=== PATIENT | male | born 1940 | race Caucasian/White ===

== ENCOUNTER 2023-06-09 06:53 | Outpatient (CLI) | payer OTHER, SELFPAY ==
--- NOTE | 2023-06-09 08:32 | P.ANES_ITS ---
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
== END 2023-06-09 06:54 | disposition home or self-care (01) ==
LOC: OP CLINIC 06:56
PROVIDERS: PCP Family Medicine; Visit Provider Internal Medicine Gastroenterology
DX: Z12.11 Encounter for screening for malignant neoplasm of colon (principal); K57.30 Diverticulosis of large intestine without perforation or abscess without bleeding; Z86.010 Personal history of colon polyps
CPT/HCPCS: 45378; 812; 99100; J2704

== ENCOUNTER 2024-04-27 08:46 | Outpatient (CLI) | payer OTHER, SELFPAY ==
--- OUTSIDE RECORDS SUMMARY | 2024-04-27 08:50 | XMS_ITS | Encounter Summary ---
Author Organization [facility] Address [address] [place] [address]. [place] [address] Care Team Providers Care Inspector Fibrous Wallboard Name Role Phone Glenys Obrien MD Primary Care Provider Glenys Obrien MD Unavailable Savage Estrella [facility] Unavailable Unavailable Coming Katharine De Oliveira MD Unavailable [phone] Todd Shaw MD Unavailable Sukhwinder Collins MD Unavailable Todd Shaw MD Unavailable [phone] Coming Katharine De Oliveira MD Primary Care Provid er Fritz Cantu RN Unavailable Unavailab Keiry Estes PA-C Unavailable [phone] Encounter Details Date Type Department Care Team (Late st Contact Info) Description 07/30/2021 [facility] [address] [phone] [place] [id number] [place] [id number] Social History Tobacco Use Types Packs/Day Years Used Date Smoking Tobacco: Former Smokeless Tobacco: Never Alcohol Use Standard Drinks/Week Comments Yes 0 (1 standard drink = 0.6 oz pur e alcohol) socially Social Connection and Isolat ion Panel [NHANES] Answer Date Recorded Frequency of Communication w ith Friends and Family More than three times a week 05/09/2019 Frequency of Social Gatherin gs with Friends and Family More than three times a week 05/09/2019 Attends Anabaptist Services Never 05/09 Active Member of Clubs or Organizations Yes 05/09/2019 Attends Club or Organization Meetings 1 to 4 dakotah es per year 05/09/2019 Marital Status Living with partner 05/09/2019 AUDIT-C Answer Date Recorded Q1: How often do you have a drink containing alc ohol? 2-3 times a week 05/09/2019 Q2: How many drinks containi ng alcohol do you have on a typical day when you are drinking? 1 or 2 05/09/2019 Q3: How often do you have si x or more drinks on one occasion? Less than monthly 05/09/2019 Overall Financial Resource Strain (CARDIA) Answe r Date Recorded How hard is it for you to pa y for the very basics like food, housing, medical care, and heating? Not very hard 05/09/2019 PHQ-2 Answer Date Recorded PHQ-2 Score 0 05/21/2021 [facility] - Occupational Stress Questionnaire Answer Date Recorded Feeling of Stress Only a little 05/09/2019 Exercise Vital Sign Answer Date Recorde d Days of Exercise per Week 0 days 2018 Minutes of Exercise per Session 0 min 05/09/2019 Hunger Vital Sign Answer Date Recorded Within the past 12 months, y ou worried that your food would run out before you got the money to buy more. Never true 05/09/20 19 Within the past 12 months, t he food you bought just didn't last and you didn't have money to get more. Never true 05/09/2019 PRAPARE - Transportation Answer Date Re corded In the past 12 months, has l ack of transportation kept you from medical appointments or from getting medications? No 01/2019 In the past 12 months, has l ack of transportation kept you from meetings, work, or from getting things needed for daily living? No 05/09/2019 Education Answer Date Recorded What is the highest level of school you have completed or the highest degree you have received? 12th grade 05/09/2019 Sex and Gender Information Value Date Recorded Sex Assigned at Male 05/09/2019 9:19 AM CDT Gender Identity Male 05/09/2019 9:19 AM CDT Sexual Orientation Straight 05/09/2019 9: 19 AM CDT documented as of this encounter Plan of Treatment Not on file documented as of this encounter Visit Diagnoses Not on filedocumented in this encounter Additional Health Concerns Assessment Noted Time PHQ-9 Depression Total Score: 3 05/22/20 21 7:03 AM CDT documented as of this encounter Care Teams Inspector Fibrous Wallboard Relationship Specialty [place] [id number] [address] [place] [address] PCP - General Family Practice 06/03/16 05/26/22 [place] [address] [address] [place] [address] PCP - General 05/27/22 [place] [address] [place] [place] [address] Assigned PCP 04/26/16 02/15/22 Savage Estrella [facility] [address] [address] [place] [address] Pharmacist Pharmacist 12/07/18 [place] [address] [address] [place] [address] Assigned PCP 02/16/22 Todd Shaw MD [id number] [place] [address] Assigned Surgical Provider 02/23/22 Sukhwinder Collins MD [address] [facility] [address] [place] [address] Assigned Surgical Provider 03/30/2204/05/22 Todd Shaw MD [id number] [place] [address] Assigned Surgical Provider 04/06/22 Fritz Cantu, ZIA Personal Advocate & Liaison (PAL) Nurse 08/16/22 12/02/23 Keiry Hernandez, PA-C [address] [place] [address] Physician Harness Inspector Dermatology 06/02/23 documented as of this encounter
--- OUTSIDE RECORDS SUMMARY | 2024-04-27 08:50 | XMS_ITS | Clinical Summary ---
Author Organization [facility] Address [address] [place] [address]. [place] [address] Care Team Providers Care Agency Trainer Name Role Phone Savage Estrella [facility] Unavailable Unavailable Coming Katharine De Oliveira MD Unavailable [phone] Coming Katharine De Oliveira MD Primary Care Provid er Keiry Hernandez PA-C Unavailable [phone] Allergies No known active allergies Medications Medication Sig Dispensed Refills Start Date End Date Status aspirin 81 MG tablet Take 1 tablet (81 mg) by mouth daily 300 tablet 11 05/14/2016 Active Glucosamine-Chondroit -Vit C-Mn (GLUCOSAMINE CHONDR 500 COMPLEX PO) Take 1 tablet by mouth daily Active cholecalciferol (VITAMIN D3) 125 MCG (5000 UT) TABS tablet Take 5,000 Units by mouth daily Active fish oil-omega-3 fatty acids 1000 MG capsule Take 2 g by mouth daily Active nitroGLYcerin (NITROSTAT) 0.4 MG sublingual tabletIndications:His tory of [place] (myocardial infarction) Place 1 tablet (0.4 mg) under the tongue every 5 minutes as needed for chest pain if still having pain after 3 doses (15 min) call 911 25 tablet 3 06/02/2023 Active omeprazole (PRILOSEC) [address] capsuleIndications:Ep igastric pain Take 1 capsule (40 mg) by mouth daily 90 capsule 3 06/02/2023 Active lisinopril (ZESTRIL) 40 MG tabletIndications:Jesús ign essential hypertension Take 1 tablet (40 mg) by mouth daily 90 tablet 3 06/02/2023 Active metoprolol succinate ER (TOPROL XL) 25 MG 24 hr tabletIndications:His [place]ory of [place] (myocardial infarction) Take 1 tablet (25 mg) by mouth daily 90 tablet 3 06/02/2023 Active simvastatin (ZOCOR) 40 MG tabletIndications:Hyp erlipidemia LDL goal <100 Take 1 tablet (40 mg) by mouth at bedtime 90 tablet 3 06/02/2023 Active Active Problems Problem Noted Date Diagnosed Date CKD (chronic kidney disease) 06/02/2023 Syrinx of spinal cord 06/02/2023 Esophageal dysphagia 10/26/2019 Last Assessment & Plan: Lately food, texture not noted, getting stuck. He has to vomit mucus to make the sensation stop Corneal transplant status 05/05/2018 AK (actinic keratosis) 05/28/2017 Acute gouty arthritis 06/03/2016 History of [place] (myocardial infarction) 05/14/2016 Last Assessment & Plan: Remote. On statin beta-chata ASA Presence of stent in left circumflex coronary ar neo 05/14/2016 Last Assessment & Plan: Remote. Stress echo 2 years ago reassuring Benign essential hypertension 05/14/2016 Hyperlipidemia LDL goal <100 05/14/2016 PAC (premature atrial contraction) 05/14/2016 Unilateral inguinal hernia without obstruction o r gangrene 05/14/2016 Cataract 05/14/2016 Arthritis of knee 05/14/2016 Adenomatous colon polyp 05/28/2013 Overview: Overview: Colonoscopy 05/2013 polyps repeat in 5 years Colonoscopy 12/2017 polyps, repeat in 5 years Resolved Problems Problem Noted Date Diagnosed Date Resolved Date Alcohol-induced insomnia 06/30/2020 Other chest pain 10/26/2019 06/30/2020 Last Assessment & Plan: Precordial radiates to the neck responsive to nitroglycerin. Recommend ED evaluation History of small bowel obstruction 05/05/2018 06/30/2020 History of colonic polyps 05/05/2018 NSTEMI (non-ST elevated myoc ardial infarction) 05/14/2016 05/28/2022 Overview: S/p stent Injury of right upper extremity 05/14/2016 01/22/2022 Immunizations Name Administration Dates Next Due COVID-19 12+ (MODERNA) 06/10/2023 COVID-19 Bivalent 12+ (Pfizer) 04/24/2022 COVID-19 MONOVALENT 12+ (Pfizer) 05/08/2021 COVID-19 Monovalent 12+ (Pfizer 2021) 12/12/2021 [id number] Novel Flu 08/14/2009 Influenza (High Dose) Trival ent,PF (Fluzone) 05/12/2019,05/05/2018,05/28/2017,2014,05/24/2014,05/18/2013,05/16/2010 Influenza (IIV3) PF 05/18/2013, 2,07/02/2011,2008,05/23/2008,06/09/2007,06/10/2006,1 08/28/2004 Influenza Vaccine 65+ (Fluzone HD) 06/10,05/28/2022,05/21/2021,2019 Influenza Vaccine >6 months,quad, PF 05/14/2016 Influenza, seasonal, injectable, PF 07/02/2011,1 09/05/2008 Pneumo Conj 13-V (2010&after) 05/14/2016 Pneumococcal 23 valent 03/04/2008 TD,PF 7+ (Tenivac) 11/03/2003 TDAP (Adacel,Boostrix) 05/28/2022 TDAP Vaccine (Adacel) 07/02/2011 Zoster recombinant adjuvante d (SHINGRIX) 10/26/2019,05/12/2019 Zoster vaccine, live 08/12/2011 Family History Medical History Relation Comments Coronary Artery Disease Father Hyperlipidemia Father Other Cancer Father Alzheimer Disease Mother Relation Status Comments Brother 1 Alive Brother 2 Alive Father Mother Social History Tobacco Use Types Packs/Day Years Used Date Smoking Tobacco: Former Cigarettes 0.5 10 0 1958 - 1968 Smokeless Tobacco: Never Tobacco Cessation:Counseling Given: Not Answered Alcohol Use Standard Drinks/Week Comments Yes 0 (1 standard drink = 0.6 oz pur e alcohol) socially Social Connection and Isolat ion Panel [NHANES] Answer Date Recorded In a typical week, how many times do you talk on the phone with family, friends, or neighbors? More than three times a week 05/29/2023 How often do you get togethe r with friends or relatives? More than three times a week 05/29/2023 How often do you attend chur ch or congregation services? Never 05/29/2023 Do you belong to any clubs o r organizations such as gnosticism groups, unions, fraternal or athletic groups, or school groups? No 05/29/2023 How often do you attend meet ings of the clubs or organizations you belong to? Never 05/29/2023 Are you , , di vorced, , never , or living with a partner? 05/29/2023 AUDIT-C Answer Date Recorded Q1: How often do you have a drink containing alcohol? 4 or more times a week 05/29/2023 Q2: How many drinks containi ng alcohol do you have on a typical day when you are drinking? 1 or 2 Q3: How often do you have si x or more drinks on one occasion? Never 05/29/2023 PHQ-2 Answer Date Recorded PHQ-2 Score 1 [facility]02[facility] - Occupational Stress Questionnaire Answer Date Recorded Do you feel stress - tense, restless, nervous, or anxious, or unable to sleep at night because your mind is troubled all the time - these days? Only a little 05/29/2023 Exercise Vital Sign Answer Date Recorde d On average, how many days pe r week do you engage in moderate to strenuous exercise (like a brisk walk)? 0 days 05/29/2023 On average, how many minutes do you engage in exercise at this level? 0 min 05/29/2023 Adolescent Education Answer Date Record ed Getting School Help Needed Not on file 05/16 Food Insecurity Answer Date Recorded Within the past 12 months, d id you worry that your food would run out before you got money to buy more? No 05/29/2023 Within the past 12 months, d id the food you bought just not last and you didn? t have money to get more? No 05/29/2023 Housing Stability Answer Date Recorded Do you have housing? (Kristin orellana is defined as stable permanent housing and does not include staying ouside in a car, in a tent, in an abandoned building, in an overnight snf, or couch-surfing.) Yes 05/29/2023 Are you worried about losing your housing? No 05/29/2023 Financial Resource Strain Answer Date R ecorded Within the past 12 months, h ave you or your family members you live with been unable to get utilities (heat, electricity) when it was really needed? No 05/29/2023 Transportation Needs Answer Date Record ed Within the past 12 months, h as lack of transportation kept you from medical appointments, getting your medicines, non-medical meetings or appointments, work, or from getting things that you need? No 05/29/2023 Interpersonal Safety Answer Date Record ed Do you feel physically and e motionally safe where you currently live? Yes 06/05/2023 Within the past 12 months, h ave you been hit, slapped, kicked or otherwise physically hurt by someone? No 06/05/2023 Within the past 12 months, h ave you been humiliated or emotionally abused in other ways by your partner or ex-partner? No 06/05/2023 Education Answer Date Recorded What is the highest level of school you have completed or the highest degree you have received? 12th grade 05/09/2019 Sex and Gender Information Value Date Recorded Sex Assigned at Male 05/09/2019 9:19 AM CDT Gender Identity Male 05/09/2019 9:19 AM CDT Sexual Orientation Straight 05/09/2019 9: 19 AM CDT Last Filed Vital Signs Vital Sign Reading Time Taken Comments Blood Pressure 121/79 06/05/2023 12:48 PM CDT Pulse 59 06/05/2023 12:48 PM CDT Temperature 36.6 ??C (97.9 ??F) 06/05/2023 12:48 PM C DT Respiratory Rate 10 06/05/2023 12:48 PM CDT Oxygen Saturation 96% 06/05/2023 12:48 PM CDT Inhaled Oxygen Concentration - - Weight 88.1 kg (194 lb 3.2 oz) 06/05/2023 12:48 PM CDT Height 175.3 cm (5' 9) 06/05/2023 12:48 PM CDT Body Mass Index 28.68 06/05/2023 12:48 PM CDT Plan of Treatment Health Maintenance Due Date Last Done Comments CT COLONOGRAPHY 1942 FIT 1942 FLEX SIG 1942 sDNA (Cologuard) 1942 URINALYSIS 1943 RSV VACCINE (1 - 1-dose 75+ series) 2017 PHQ-2 (once per calendar year) 2023 06/02/2023, 05/28/2022, 01/22/2022, Additional history exists COVID-19 Vaccine ( season) 2024 06/10/2023, 04/24/2022, 12/12/2021, Additional history exists INFLUENZA VACCINE (#1) 2024 , 05/28/2022, 05/21/2021, Additional history exists ANNUAL REVIEW OF HM ORDERS 06/02/202406/02, 05/28/2022, 06/30/2020, Additional history exists BMP 06/02/2024 06/02/2023, 02/2023, 11/14/2022, Additional history exists LIPID 06/02/2024 06/02/2023, 05/05, 05/21/2021, Additional history exists MEDICARE ANNUAL WELLNESS VISIT 06/02/2024 06/02/2023, 05/28/2022, 05/21/2021, Additional history exists MICROALBUMIN 06/02/2024 06/02/2023, 05/14/2016 FALL RISK ASSESSMENT 06/05/2024 06/05/2023, 06/02/2023, 05/28/2022, Additional history exists ADVANCE CARE PLANNING 06/02/2028 06/02/2023, 021 COLONOSCOPY 06/09/2028 06/09/2023, 01/2023, 11/02/2017, Additional history exists COLORECTAL CANCER SCREENING 06/09/2028 DTAP/TDAP/TD IMMUNIZATION (3 - Td or Tdap) 05/28/2032 05/28/2022, 07/02/2011, 11/03/2003 Pneumococcal Vaccine: 65+ Years Completed 05/14/2016, 03/04/2008 ZOSTER IMMUNIZATION Completed 10/26/2019, 05/12/2019, 08/12/2011 LUNG CANCER SCREENING Discontinued 02/06/2022 HPV IMMUNIZATION Aged Out No longer e ligible based on patient's age to complete this topic MENINGITIS IMMUNIZATION Aged Out No l onger eligible based on patient's age to complete this topic RSV MONOCLONAL ANTIBODY Aged Out No l onger eligible based on patient's age to complete this topic Procedures Procedure Name Priority Date/Time Associated Diagnosis Comments ALBUMIN RANDOM URINE QUANTITATIVE Routine 06/02/2023 10:34 AM CDT Chronic kidney disease, stage 2 (mild) LIPID REFLEX TO DIRECT LDL PANEL Routine 06/02/2023 10:30 AM CDT Hyperlipidemia LDL goal <100 COMPREHENSIVE METABOLIC PANEL Routine 06/02/2023 10:30 AM CDT Chronic kidney disease, stage 2 (mild) Benign essential hypertension CT CHEST W/O CONTRAST STAT 02/06/2022 12:43 PM CDT Lung mass COLONOSCOPY - HIM SCAN Routine 11/02/2017 from Last 3 Months or Most Recently Relevant to Health Maintenance Results * Albumin Random Urine Quantitative with Creat Ratio (06/02/2023 10:34 AM CDT) Creatinine Urine mg/dL 97.5 mg/dL 06/02/2023 8:44 PM CDT [facility] Comment:The reference ranges have not been established in urine creatinine. The results should be integrated into the clinical context for interpretation. Albumin Urine mg/L <12.0 mg/L 2022 8:44 PM CDT [facility] Comment:The reference ranges have not been established in urine albumin. The results should be integrated into the clinical context for interpretation. Albumin Urine mg/g Cr 06/02/2023 8:44 PM CDT [facility] Comment: Unable to calculate, urine albumin and/or urine creatinine is outside detectable limits. Microalbuminuria is defined as an albumin:creatinine ratio of 17 to 299 for males and 25 to 299 for females. A ratio of albumin:creatinine of 300 or higher is indicative of overt proteinuria. Due to biologic variability, positive results should be confirmed by a second, first-morning random or 24-hour timed urine specimen. If there is discrepancy, a third specimen is recommended. When 2 out of 3 results are in the microalbuminuria range, this is evidence for incipient nephropathy and warrants increased efforts at glucose control, blood pressure control, and institution of therapy with an drwmgnqstur-wutdotwhef-eovuly (RENEE) inhibitor (if the patient can tolerate it). ?? Urine MID-STREAM URINE SPECIMEN / Unknown Non-blood Collection / Unknown 06/02/2023 10:34 AM CDT 06/02/2023 10:34 AM CDT November Rosa De Oliveira MD LAB - URINE ORDERABLES [facility] [place] [facility] [address] [facility] [place] [address] [id number], [facility] [phone] * (ABNORMAL) Lipid panel reflex to direct LDL Fasting (06/02/2023 10:30 AM CDT) Cholesterol 139 <200 mg/dL 06/02/2023 8:44 PM CDT [facility] Triglycerides 177(H) <150 mg/dL 06/02/2023 8:44 PM CDT [facility] Direct Measure HDL 36(L) >=40 mg/dL 06/02/2023 8:44 PM CDT [facility] LDL Cholesterol Calculated 68 <=100 mg/dL 06/02/2023 8:44 PM CDT [facility] Non HDL Cholesterol 103 <130 mg/dL 06/02/2023 8:44 PM CDT [facility] Blood BLOOD SPECIMEN / Unknown Venipuncture / Unknown 06/02/2023 10:30 AM CDT 06/02/2023 10:30 AM CDT Narrative [facility] - 06/02/2023 8:44 PM CDT Cholesterol Desirable: ??<200 mg/dL Triglycerides Normal: ??Less than 150 mg/dL Borderline High: ??150-199 mg/dL High: ??200-499 mg/dL Very High: ??Greater than or equal to 500 mg/dL Direct Measure HDL Female: ??Greater than or equal to 50 mg/dL Male: ??Greater than or equal to 40 mg/dL LDL Cholesterol Desirable: ??<100mg/dL Above Desirable: ??100-129 mg/dL Borderline High: ??130-159 mg/dL High: ??160-189 mg/dL Very High: ??>= 190 mg/dL Non HDL Cholesterol Desirable: ??130 mg/dL Above Desirable: ??130-159 mg/dL Borderline High: ??160-189 mg/dL High: ??190-219 mg/dL Very High: ??Greater than or equal to 220 mg/dL November Rosa De Oliveira MD LAB - BLOOD ORDERABLES [facility] [address] [place], [address] [address], [facility] [phone] * (ABNORMAL) Comprehensive metabolic panel (BMP + Alb, Alk Phos, ALT, AST, Total. Bili, TP) (06/02/2023 10:30 AM CDT) [facility] Sodium 142 135 - 145 mmol/L 06/02/2023 8:44 PM CDT [facility] Comment:Reference intervals for this test were updated on 04/29/2023 to more accurately reflect our healthy population. There may be differences in the flagging of prior results with similar values performed with this method. Interpretation of those prior results can be made in the context of the updated reference intervals. Potassium 4.5 3.4 - 5.3 mmol/L 06/02/2023 8:44 PM CDT [facility] Carbon Dioxide (CO2) 26 22 - 29 mmol/L 06/02/2023 8:44 PM CDT [facility] Anion Gap 9 7 - 15 mmol/L 06/02/2023 8:44 PM CDT [facility] Urea Nitrogen 16.0 8.0 - 23.0 mg/dL 06/02/2023 8:44 PM CDT [facility] Creatinine 1.32(H) 0.67 - 1.17 mg/dL 06/02/2023 8:44 PM CDT [facility] GFR Estimate 55(L) >60 mL/min/1. 73m2 06/02/2023 8:44 PM CDT [facility] Calcium 9.3 8.8 - 10.2 mg/dL 06/02/2023 8:44 PM CDT [facility] Chloride 107 98 - 107 mmol/L 06/02/2023 8:44 PM CDT [facility] Glucose 98 70 - 99 mg/dL 06/02/2023 8:44 PM CDT [facility] Alkaline Phosphatase 60 40 - 129 U/L 06/02/2023 8:44 PM CDT [facility] AST 17 0 - 45 U/L 06/02/2023 8:44 PM CDT [facility] Comment:Reference intervals for this test were updated on 01/13/2023 to more accurately reflect our healthy population. There may be differences in the flagging of prior results with similar values performed with this method. Interpretation of those prior results can be made in the context of the updated reference intervals. ALT 15 0 - 70 U/L 06/02/2023 8:44 PM CDT [facility] Comment:Reference intervals for this test were updated on 01/13/2023 to more accurately reflect our healthy population. There may be differences in the flagging of prior results with similar values performed with this method. Interpretation of those prior results can be made in the context of the updated reference intervals. Protein Total 7.0 6.4 - 8.3 g/dL 06/02/2023 8:44 PM CDT [facility] Albumin 4.2 3.5 - 5.2 g/dL 06/02/2023 8:44 PM CDT [facility] Bilirubin Total 0.5 <=1.2 mg/dL 06/02/2023 8:44 PM CDT [facility] Blood BLOOD SPECIMEN / Unknown Venipuncture / Unknown 06/02/2023 10:30 AM CDT 06/02/2023 10:30 AM CDT November Rosa De Oliveira MD LAB - BLOOD ORDERABLES [facility] [address] [facility], [address] [place] [address], [facility] [phone] * CT Chest w/o Contrast (02/06/2022 12:43 PM CDT) Anatomical Region Laterality Modality Chest, SUBRAD CT BODY, UMP CT CHEST, RAD CT Computed Tomography Impressions 02/06/2022 1:00 PM CDT IMPRESSION: ?? 1. No evidence of lung mass. 2. Moderate size hiatal hernia. 3. Extensive atherosclerotic vascular calcification of the coronary arteries. ELENI BOWER MD Narrative 02/06/2022 1:[address] CHEST WITHOUT CONTRAST ??02/06/2022 12:43 PM HISTORY: Lung mass. TECHNIQUE: ??Scans obtained from the apices through the diaphragm without IV contrast. Radiation dose for this scan was reduced using automated exposure control, adjustment of the mA and/or kV according to patient size, or iterative reconstruction technique. COMPARISON: Chest x-ray on 01/30/2022. FINDINGS: Chest/mediastinum: Heterogenous thyroid gland. No cardiomegaly or significant pericardial effusion. No significant mediastinal or hilar lymphadenopathy. Extensive atherosclerotic vascular calcification of the coronary arteries. Moderate size hiatal hernia. Lung/pleura: No pleural effusion or pneumothorax. Mild basilar pulmonary opacities, likely atelectasis. A few scattered calcified pulmonary granulomas. No suspicious focal pulmonary opacities. Upper abdomen: Limited evaluation of the upper abdomen due to lack of coverage and contrast. Please refer to concurrently performed CT abdomen and pelvis for findings related to the upper abdomen. Bones and soft tissue: Multilevel degenerative changes of the spine. No suspicious osseous lesion. Procedure Note Eleni Bower MD - 02/06/2022 CT CHEST WITHOUT CONTRAST 02/06/2022 12:43 PM HISTORY: Lung mass. TECHNIQUE: Scans obtained from the apices through the diaphragm without IV contrast. Radiation dose for this scan was reduced using automated exposure control, adjustment of the mA and/or kV according to patient size, or iterative reconstruction technique. COMPARISON: Chest x-ray on 01/30/2022. FINDINGS: Chest/mediastinum: Heterogenous thyroid gland. No cardiomegaly or significant pericardial effusion. No significant mediastinal or hilar lymphadenopathy. Extensive atherosclerotic vascular calcification of the coronary arteries. Moderate size hiatal hernia. Lung/pleura: No pleural effusion or pneumothorax. Mild basilar pulmonary opacities, likely atelectasis. A few scattered calcified pulmonary granulomas. No suspicious focal pulmonary opacities. Upper abdomen: Limited evaluation of the upper abdomen due to lack of coverage and contrast. Please refer to concurrently performed CT abdomen and pelvis for findings related to the upper abdomen. Bones and soft tissue: Multilevel degenerative changes of the spine. No suspicious osseous lesion. IMPRESSION: 1. No evidence of lung mass. 2. Moderate size hiatal hernia. 3. Extensive atherosclerotic vascular calcification of the coronary arteries. ELENI BOWER MD Ingrid Garcia APRN TILE LAYER SUPERVISOR IMG CT ORDER JUAN PABLO * Colonoscopy - HIM Scan (11/02/2017) Pipe Nan Knott - 11/02/2017 Colonoscopy done on this date: 11/2017 (approximately), by this group: Jeremy, results were normal Provider Outside PROCEDURES from Last 3 Months or Most Recently Relevant to Health Maintenance Advance Directives For more information, please contact: [phone] Documents on File Type Date Recorded Patient Courtesy Clerk Expl anation Advance Directives and Living Will 08/08/2020 10:07 AM Health Care Directiv e 11/21/2011 * Full Code (Latest Code Status on File) Date Activated Date Inactivated Comments 10/26/2019 2:28 PM 10/27/2019 1:43 PM Question Answer Comments Code status determined by: Unable to dis cuss and no AD/POLST on file; continue PREVIOUSLY ORDERED code status Healthcare Agents on File Name Relationship Healthcare Agent Relationship Communication Saloni Armijo Significant other Health Care Agent NONE (Work) Aster [place] Daughter First Alternate Health Care Agent Care Teams Agency Trainer Relationship Specialty Start Date [place] [address] [place] [address] PCP - General 05/27/[address] [place] [address] [place] [address] Pharmacist Pharmacist 12/07/18 [place] [address] [place] [address] Assigned PCP 02/16/22 Keiry Hernandez, PASusanneC [address] [facility] [address] Physician Liner Replacer Dermatology 06/02/23
--- OUTSIDE RECORDS SUMMARY | 2024-04-27 08:50 | XMS_ITS | Encounter Summary ---
Author Organization [place] Address [address] [place] [address]. [place] [address] Care Team Providers Care Mint Wafer Depositor Name Role Phone Que Crump Primary Care Provider [phone] Glenys Obrien MD Primary Care Provider Glenys Obrien MD Unavailable Glenys Obrien MD Unavailable Savage Estrella [facility] Unavailable Unavailable Coming Katharine De Oliveira MD Unavailable [phone] Todd Shaw MD Unavailable [phone] Sukhwinder Collins MD Unavailable Todd Shaw MD Unavailable [phone] Coming Katharine De Oliveira MD Primary Care Provid er Fritz Cantu RN Unavailable Unavailab Keiry Estes PA-C Unavailable [phone] Encounter Details Date Type Department Care Team (Late st Contact Info) Description 07/06/2010 Office Visit-[facility] [address] [place] [address] Manav Holder MD Social History Tobacco Use Types Packs/Day Years Used Date Smoking Tobacco: Never Assessed Sex and Gender Information Value Date Recorded Sex Assigned at Male 05/09/2019 9:19 AM CDT Gender Identity Male 05/09/2019 9:19 AM CDT Sexual Orientation Straight 05/09/2019 9: 19 AM CDT documented as of this encounter Progress Notes * Manav Holder MD - 07/10/2010 11:33 AM CST Progress Note Created by: Manav Holder M.D. DATE: 07/06/2010 RASHMI MCCLURE DATE OF : 1940 AGE: [age] years old Referring Physician: MELI DONOHUE Referring Clinic: [facility] CURRENT DIAGNOSES 1. - CAD, 414.00 2. - Hyperlipidemia, 272.4 3. PTCA- OM1 AMEE 07/11, V45.82 4. CA-S/P Non-Q wave, 412 5. - Hypertension, 401.1 ALLERGIES NKA MEDICATIONS (prior to changes made today) 1. Lisinopril 5 Mg Tablet, 1 p.o. daily 2. Triamcinolone Acetonide 0.1 % Cream, Take as Directed 3. NitroQuick 0.4 mg Tablet, Sublingual, Take as Directed 4. Niacin 1,000 mg Tablet Sustained Release, 2 p.o. daily 5. Amitriptyline 10 mg Tablet, 1 p.o. as Directed-prn 6. Fish Oil 1000mg, 2 p.o. daily 7. Simvastatin 40 mg Tablet, 1 p.o. daily 8. Vitamin D-3 2,000 unit Tablet, 1 p.o. daily 9. Aspirin 81 Mg Tablet, 1 p.o. daily 10. Glusosamine Hcl/ Chondroilin Sulfate 1500 Mg./ 1200 Mg., 1 p.o. daily 11. Atenolol 25 mg Tablet, 1 p.o. twice daily CHIEF COMPLAINTS Followup of - CAD HISTORY OF PRESENT ILLNESS I had the pleasure of seeing Mr. Mcclure today. This is a 69-year-old gentleman I am seeing in followup of his coronary artery disease. He is now two years out from presenting with an acute coronary syndrome and subsequent stenting of a large marginal branch. Clinically, he has been stable this year. He has a moderate activity level and has had no limitations with this, including no chest discomfort, unusual fatigue or any dyspnea with activity or at other times. He is without heart failure or arrhythmia symptoms. He denies claudication or focal neurologic symptoms. He also is without myalgias or muscle weakness. He brought in lipids from Dr. Donohue's office from earlier this fall, showing total cholesterol 141, HDL up to 40, which is an improvement for him (he began around 30) and LDL of 65. Triglycerides were mildly elevated at 179. A year ago they were normal at 129 to this likely reflects some dietaryindiscretion. Cardiopulmonary examination is normal today. Blood pressure is 124/66, and he states it is usually below that level. PAST HISTORY Past Medical Illnesses: Hyperglycemia, hypertension, pneumonia, hyperlipidemia, diabetes mellitus-diet controlled Past Cardiac Illnesses: coronary artery disease, S/P myocardial infarction-non Q wave, angina Surgeries/Procedures - General: hernia repair Cardiology Procedures-Invasive: cardiac cath (left) Jul 2008, Cardiology Procedures-Noninvasive: myocardial perfusion (Nuc) Jul 2009 Cardiac Cath Results: AMEE Stent OM 04 Jul 2008 Left Ventricular Ejection Fraction: EF normal by cath -Jul 2008, 07/12 EF 63% by nuc Nuclear Results: 07/12 no ischemia/infarction, no WMA SOCIAL HISTORY Alcohol Use - drinks occasionally and beer; Smoking - used to smoke but quit and stop 1969; Diet - caffeine use-3-4 per day; Lifestyle - , children and drives car; Exercise - some exercise, treadmill, for approximately 15 minutes and 5 days per week; Seat Belt Use - always; Occupation - retired; Sexual Activity - did not discuss sexual history; Residence - lives with female partner; Place of - [place]; REVIEW OF SYSTEMS GENERAL no change in weight, feels well INTEGUMENTARY denies any change in hair or nails, rashes, or skin lesions. EYES no blurred vision, eye pain, or discharge., wears eye glasses/contact lenses EARS, NOSE, THROAT, MOUTH denies any hearing loss, epistaxis, hoarseness or difficulty speaking. RESPIRATORY denies dyspnea, snoring, cough, wheezing or hemoptysis. CARDIOVASCULAR per HPI ABDOMINAL denies ulcer disease, hematochezia or melena. MUSCULOSKELETAL mild pain upper back NEUROLOGICAL denies any history of recurrent headaches, strokes, TIA, or seizure disorder. PSYCHIATRIC sleep disturbance, niaspan wakes him with flushing/itching, Sleep well no problems, sometimes has flushing at night from niacin ENDOCRINE denies any history of thyroid disease or diabetes mellitus. HEMATOLOGICAL/IMMUNOLOGIC denies any food allergies, seasonal allergies, bleeding disorders. PHYSICAL EXAMINATION VITAL SIGNS: Blood Pressure: 124/66Sitting, Left arm, large cuff Pulse- 60.00/min. Weight- 189.00 lbs. Height- 69.50 Temperature- .00 CONSTITUTIONAL cooperative, alert and oriented,well developed, well nourished, in no acute distress. SKIN warm and dry to touch, no apparent skin lesions, or masses noted. HEAD normocephalic, atraumatic EYES Pupils equal and round ENT no pallor or cyanosis, dentition good NECK carotid pulses are full and equal bilaterally, JVP normal, no carotid bruit, no thyromegaly CHEST clear to auscultation, normal respiratory excursion CARDIAC regular rhythm, S1 normal, S2 normal, No S3 or S4, Apical impulse not displaced, no murmurs, gallops or rubs detected. ABDOMEN abdomen soft, bowel sounds normoactive, non-tender, no bruits PERIPHERAL PULSES pulses full and equal in all extremities, no bruits auscultated. EXTREMITIES & BACK no clubbing, cyanosis or edema NEUROLOGICAL no gross motor deficits noted, affect appropriate, oriented to time, person and place. MEDICATIONS UPDATED/STARTED TODAY: Simvastatin 40 mg Tablet, 1 p.o. daily, #0 Vitamin D-3 2,000 unit Tablet, 1 p.o. daily, #0 MEDICATIONS REFILLED/STOPPED TODAY: Simvastatin 40 mg Tablet 1/2 tab daily #0 Physician Order, Daily Multivitamin Tablet 1 p.o. daily #0 Physician Order and Plavix 75 mg Tablet 1 p.o. daily #90 Physician Order IMPRESSIONS/PLAN 1. Coronary artery disease. Currently, appropriate risk factor intervention. I reiterated Dr. Donohue's advice about further dietary/lifestyle intervention for his mildly elevated triglycerides. 2. Status-post percutaneous transluminal coronary angioplasty. Stable with a global normal ejection fraction. 3. Dyslipidemia, as above. 4. Hypertension history, controlled. Clinically, this gentleman is doing very well. Therefore, I have recommended he continue his current regimen. Thank you for having me involved in this gentleman's care. Please let me know if you have any questions. TODAYS ORDERS 1. F/U with Shaila Vargas PA-C 1 year Manav Holder M.D. documented in this encounter Plan of Treatment Not on file documented as of this encounter Visit Diagnoses Not on filedocumented in this encounter Care Teams Mint Wafer Depositor Relationship Specialty Start Date End Date Que Crump PCP - General 07/09/12 06/02/16 [place] [address] [place] [address] PCP - General Family Practice 06/03/16 05/26/22 [place] [address] [place] [address] PCP - Assigned PCP 04/26/16 10/06/18 [place] [address] [place] [address] PCP - General 05/27/22 [place] [address] [place] [address] Assigned PCP 04/26/16 02/15/22 Savage Estrella [facility] [address] [place] [address] Pharmacist Pharmacist 12/07/18 [place] [address] [place] [address] Assigned PCP 02/16/22 Todd Shaw MD [address] [id number] [place] [address] Assigned Surgical Provider 02/23/22 Sukhwinder Collins MD [address] [place] [address] [id number] Assigned Surgical Provider 03/30/2204/05/22 Todd Shaw MD [id number] [place] [address] Assigned Surgical Provider 04/06/22 Klugherz, Fritz L, RN Personal Advocate & Liaison (PAL) Nurse 08/16/22 12/02/23 Keiry Hernandez PA-C [address] [place] [address] Physician Underwriting Account Representative Dermatology 06/02/23 documented as of this encounter
--- OUTSIDE RECORDS SUMMARY | 2024-04-27 08:50 | XMS_ITS | Encounter Summary ---
Author Organization [place] Address [address] [place] [address]. [place] [address] Care Team Providers Care Development Analyst Name Role Phone Lakshmi Alston Primary Care Provider Glenys Obrien MD Primary Care Provider Glenys Obrien MD Unavailable Glenys Obrien MD Unavailable Savage Estrella [facility] Unavailable Unavailable Coming Katharine De Oliveira MD Unavailable [phone] Todd Shaw MD Unavailable [phone] Sukhwinder Collins MD Unavailable Todd Shaw MD Unavailable Coming Katharine De Oliveira MD Primary Care Provid er Fritz Cantu RN Unavailable Unavailab Keiry Estes PA-C Unavailable [phone] Encounter Details Date Type Department Care Team (Late st Contact Info) Description 07/12/2013 Office Visit-[facility] [address] [place] [address] Manav Holder MD Social History Tobacco Use Types Packs/Day Years Used Date Smoking Tobacco: Never Assessed Sex and Gender Information Value Date Recorded Sex Assigned at Male 05/09/2019 9:19 AM CDT Gender Identity Male 05/09/2019 9:19 AM CDT Sexual Orientation Straight 05/09/2019 9: 19 AM CDT documented as of this encounter Progress Notes * Manav Holder MD - 07/15/2013 11:02 AM CST Progress Note Created by: Manav Holder M.D. DATE: 07/12/2013 RASHMI MCCLURE DATE OF : 1940 AGE: [age] years old Referring Physician: LAKSHMI ALSTON Referring Clinic: [facility] CURRENT DIAGNOSES 1. - Hyperlipidemia, 272.4 2. - Hypertension, 401.1 3. NJ-S/P Non-Q wave, 412 4. - CAD, 414.00 5. PTCA- OM1 AMEE 07/11, V45.82 ALLERGIES NKA MEDICATIONS (prior to changes made today) 1. Aspirin 81 Mg Tablet, 1 p.o. daily 2. Atenolol 25 mg Tablet, 1 p.o. twice daily 3. cinnamon bark 500 mg capsule, 1 p.o. daily 4. Fish Oil 1000mg, 2 p.o. daily 5. Flonase 50 mcg/actuation [place], Suspension, Take as Directed 6. Glusosamine Hcl/ Chondroilin Sulfate 1500 Mg./ 1200 Mg., 1 p.o. daily 7. Lisinopril 5 Mg Tablet, 1 p.o. daily 8. Lotrisone 1-0.05 % Cream, Take as Directed 9. Niacin 1,000 mg Tablet Sustained Release, 2 p.o. daily 10. NitroQuick 0.4 mg Tablet, Sublingual, Take as Directed 11. Simvastatin 40 mg Tablet, 1 p.o. daily 12. Triamcinolone Acetonide 0.1 % Cream, Take as Directed 13. Vitamin D2 50,000 unit capsule, two times weekly as directed CHIEF COMPLAINTS Followup of - CAD, Followup of - Hyperlipidemia and Followup of NJ-S/P Non-Q wave HISTORY OF PRESENT ILLNESS I had the pleasure of seeing Mr. Mcclure today. This 72-year-old gentleman is here for followup of his history of coronary artery disease. In 2007, he presented with a non-ST elevation NJ and had stenting of his circumflex. He also has a history of hypertension and dyslipidemia. He states, he has been stable this year. He continues to have a reasonable activity level and even with such vigorous activity as chopping lots of wood, he has had no unusual dyspnea, no chest pressure, and none of the chest pain he had with his ischemia. He has no unusual fatigue. He is without severe dizziness, syncope, focal neurologic symptoms, or claudication. He has spells where he has frequent PACs, although these are only notable at rest and go away when he exerts himself and has not changed since last year. I reviewed lipids from your office earlier this year showing him at excellent goal of LDL of 72. Triglycerides are slightly up at 189, with an HDL of 35. Blood pressure today is appropriate at 122/78. BMI is 28. Cardiopulmonary exam is normal. PAST HISTORY Past Medical Illnesses: Hyperglycemia, hypertension, pneumonia, hyperlipidemia, diabetes mellitus-diet controlled, nodular prostate Past Cardiac Illnesses: coronary artery disease, S/P myocardial infarction-non Q wave, angina Surgeries/Procedures - General: hernia repair, tonsillectomy Cardiac/Vasc Procedures-Invasive: cardiac cath (left) Jul 2008, Cardiology Procedures-NonInvasive: myocardial perfusion (Nuc) Jul 2009, stress echo Jul 2012 Cardiac Cath Results: AMEE Stent OM 04 Jul 2008 PMHx Stress Echo Results: 12/12 Normal stress echocardiogram,Good exercise tolerance,No regional wall motion abnormalities noted,Normal resting wall motion and no stress-induced wall motion abnormality,Trace TR, Mild AR. Left Ventricular Ejection Fraction: EF normal by cath -Jul 2008, 07/12 EF 63% by nuc, EF 55-60% baseline, <GT>70% stress by stress echo 07/15 Nuclear Results: 07/12 no ischemia/infarction, no WMA LVEF of +70% documented via stress echo on 07/17/2012 SOCIAL HISTORY Alcohol Use - drinks occasionally and beer; Smoking - used to smoke but quit and stop 1969; Diet - caffeine use-3-4 per day and regular diet without modifications; Lifestyle - , children and drives car; Exercise - no regular exercise; Seat Belt Use - always; Occupation - retired; Sexual Activity - did not discuss sexual history; Residence - lives with female partner; Place of - [place]; REVIEW OF SYSTEMS GENERAL slight weight gain, feeling well, energy is good INTEGUMENTARY lesions on skin and face EYES wears eye glasses/contact lenses EARS, NOSE, THROAT, MOUTH denies any hearing loss, epistaxis, hoarseness or difficulty speaking. RESPIRATORY denies dyspnea, snoring, cough, wheezing or hemoptysis. CARDIOVASCULAR per HPI ABDOMINAL normal for pt to go from diarrhea to constipation daily GENITOURINARY-MALE nocturia x 1 MUSCULOSKELETAL mild pain upper back NEUROLOGICAL denies any history of recurrent headaches, strokes, TIA, or seizure disorder. PSYCHIATRIC denies any history of depression, substance abuse or change in cognitive functions. ENDOCRINE denies any history of thyroid disease or diabetes mellitus. HEMATOLOGICAL/IMMUNOLOGIC denies any food allergies, seasonal allergies, bleeding disorders. PHYSICAL EXAMINATION VITAL SIGNS: Blood Pressure: 122/78Sitting, Left arm, regular cuff Pulse- 52.00/min. Weight- 197.20 lbs. Height- 69.5 BMI Measurement: 28 CONSTITUTIONAL cooperative, alert and oriented,well developed, well [...] time, person and place. MEDICATIONS UPDATED/STARTED TODAY: IMPRESSIONS/PLAN 1. Coronary artery disease. Currently without heart failure, ischemic, or arrhythmia symptoms. Ejection fraction was normal one year ago. The stress study was normal a year ago. 2. Dyslipidemia, at areasonable goal on his current regimen. I have recommended he continue it. 3. Hypertension, controlled. 4. Status-post NJ, non-Q wave, with OM stenting in 2007, stable. It was a pleasure seeing this gentleman doing well. I will have him continue his current cardiovascular regimen. Please let me know if you have any questions. TODAYS ORDERS 1. F/U with Shaila Vargas PA-C 1 year Manav Holder M.D. documented in this encounter Plan of Treatment Not on file documented as of this encounter Visit Diagnoses Not on filedocumented in this encounter Care Teams Development Analyst Relationship Specialty Start Date End Date AlstonLakshmi garcia PCP - General 07/09/12 06/02/16 [place] [address] [place] [address] PCP - General Family Practice 06/03/16 05/26/22 [place] [address] [place] [address] PCP - Assigned PCP 04/26/16 10/06/18 [place] [address] [place] [address] PCP - General 05/27/22 [place] [address] [place] [address] Assigned PCP 04/26/16 02/15/22 Savage Estrella [facility] [address] [place] [address] Pharmacist Pharmacist 12/07/18 [place] [address] [place] [address] Assigned PCP 02/16/22 Todd Shaw MD [address] [id number] [place] [address] Assigned Surgical Provider 02/23/22 Sukhwinder Collins MD [address] [address]50485 Assigned Surgical Provider 03/30/2204/05/22 Todd Shaw MD [address] [id number] [place] [address] Assigned Surgical Provider 04/06/22 Fritz Cantu, RN Personal Advocate & Liaison (PAL) Nurse 08/16/22 12/02/23 Keiry Hernandez, PASusanneC [address] [place] [address] Physician Metal Fabricator Apprentice Dermatology 06/02/23 documented as of this encounter
--- OUTSIDE RECORDS SUMMARY | 2024-04-27 08:50 | XMS_ITS | Encounter Summary ---
Author Organization [place] Address [address] [place] [address]. [place] [address] Care Team Providers Care Civil Designer Name Role Phone Glenys Obrien MD Primary Care Provider [phone] Glenys Obrien MD Unavailable Savage Estrella [facility] Unavailable Unavailable Coming aKtharine De Oliveira MD Unavailable [phone] Todd Shaw MD Unavailable Sukhwinder Collins MD Unavailable Todd Shaw MD Unavailable [phone] Coming Katharine De Oliveira MD Primary Care Provid er Fritz Cantu RN Unavailable Unavailab Keiry Estes PA-C Unavailable [phone] Encounter Details Date Type Department Care Team (Late st Contact Info) Description 12/11/2018 [facility] [address] [place] [id number] [facility] Social History Tobacco Use Types Packs/Day Years Used Date Smoking Tobacco: Former Smokeless Tobacco: Never Alcohol Use Standard Drinks/Week Comments Yes 0 (1 standard drink = 0.6 oz pur e alcohol) socially PHQ-2 Answer Date Recorded PHQ-2 Score 0 08/15/2018 Sex and Gender Information Value Date Recorded Sex Assigned at Male 05/09/2019 9:19 AM CDT Gender Identity Male 05/09/2019 9:19 AM CDT Sexual Orientation Straight 05/09/2019 9: 19 AM CDT documented as of this encounter Plan of Treatment Not on file documented as of this encounter Visit Diagnoses Not on filedocumented in this encounter Care Teams Civil Designer Relationship Specialty [place] [address] [place] [address] PCP - General Family Practice 06/03/16 05/26/22 [place] [address] [place] [address] PCP - General 05/27/22 [place] [address] [place] [address] Assigned PCP 04/26/16 02/15/22 Savage Estrella [facility] [address] [place] [address] Pharmacist Pharmacist 12/07/18 [place] [address] [place] [address] Assigned PCP 02/16/22 Todd Shaw MD [address] [place] [address] [place] [address] Assigned Surgical Provider 02/23/22 Sukhwinder Collins MD [address] 9162[address] Assigned Surgical Provider 03/30/2204/05/22 Todd Shaw MD [address] [id number] [place] [address] Assigned Surgical Provider 04/06/22 Fritz Cantu RN Personal Advocate & Liaison (PAL) Nurse 08/16/22 12/02/23 Keiry Hernandez PA-C [address] [facility] [place] [address] Physician Special Officer Automat Dermatology 06/02/23 documented as of this encounter
--- OUTSIDE RECORDS SUMMARY | 2024-04-27 08:50 | XMS_ITS | Encounter Summary ---
Author Organization [facility] Address [address] [place] [address]. [place] [address] Care Team Providers Care Credentialer Name Role Phone Lakshmi Alston Primary Care Provider Glenys Obrien MD Primary Care Provider Glenys Obrien MD Unavailable Glenys Obrien MD Unavailable Savage Estrella [facility] Unavailable Unavailable Coming Katharine De Oliveira MD Unavailable [phone] Todd Shaw MD Unavailable Sukhwinder Collins MD Unavailable Todd Shaw MD Unavailable Coming Katharine De Oliveira MD Primary Care Provid er Fritz Cantu RN Unavailable Unavailab Keiry Estes PA-C Unavailable [phone] Encounter Details Date Type Department Care Team (Late st Contact Info) Description 07/20/2012 Office Visit-[facility] Heart [address] [place] [address] Unknown, Doctor, Social History Tobacco Use Types Packs/Day Years Used Date Smoking Tobacco: Never Assessed Sex and Gender Information Value Date Recorded Sex Assigned at Male 05/09/2019 9:19 AM CDT Gender Identity Male 05/09/2019 9:19 AM CDT Sexual Orientation Straight 05/09/2019 9: 19 AM CDT documented as of this encounter Progress Notes * Unknown, DoctorMD - 07/23/2012 9:37 AM CST Progress Note Created by: Shaila Vargas PA-C DATE: 07/20/2012 [id number] RASHMI MCCLURE DATE OF : 1940 AGE: [age] years old Referring Physician: LAKSHMI ALSTON Referring Clinic: [facility] CURRENT DIAGNOSES 1. - Hyperlipidemia, 272.4 2. - Hypertension, 401.1 3. UT-S/P Non-Q wave, 412 4. - CAD, 414.00 5. PTCA- OM1 AMEE 07/11, V45.82 ALLERGIES NKA MEDICATIONS (prior to changes made today) 1. cinnamon bark 500 mg capsule, 1 p.o. daily 2. Fish Oil 1000mg, 2 p.o. daily 3. Flonase 50 mcg/actuation [place], Suspension, Take as Directed 4. Lisinopril 5 Mg Tablet, 1 p.o. daily 5. Lotrisone 1-0.05 % Cream, Take as Directed 6. Niacin 1,000 mg Tablet Sustained Release, 2 p.o. daily 7. NitroQuick 0.4 mg Tablet, Sublingual, Take as Directed 8. Simvastatin 40 mg Tablet, 1 p.o. daily 9. Triamcinolone Acetonide 0.1 % Cream, Take as Directed 10. Vitamin D2 50,000 unit capsule, two times weekly as directed 11. Aspirin 81 Mg Tablet, 1 p.o. daily 12. Atenolol 25 mg Tablet, 1 p.o. twice daily 13. Glusosamine Hcl/ Chondroilin Sulfate 1500 Mg./ 1200 Mg., 1 p.o. daily CHIEF COMPLAINTS Followup of annual fu cad and review stress echo HISTORY OF PRESENT ILLNESS Mr. Mcclure is a delightful 71-year-old gentleman who presents to the [facility] today for his annual cardiology follow-up visit. As you recall, he is followed inour office by Dr. Holder with a past medical history of a non-ST elevation UT that was treated withstenting to a large OM branch. He has done well since then. He had a recent stress echocardiogram, which was normal. He has had no complaints of chest discomfort or shortness of breath. He does use his treadmill twice a week without any difficulties. He has a history of hypertension, well controlled. He has a history of hyperlipidemia with HDL deficiency. He has been on niacin and simvastatin. Certainly with the results of the AIM HIGH trial, I did discuss this with him regarding the niacin. He just got a six-month prescription for it and will c ontinue and finish that out. All other review of systems, past medical history, and physical examination findings are noted below. PAST HISTORY Past Medical Illnesses: Hyperglycemia, hypertension, pneumonia, hyperlipidemia, diabetes mellitus-diet controlled, nodular prostate Past Cardiac Illnesses: coronary artery disease, S/P myocardial infarction-non Q wave, angina Surgeries/Procedures - General: hernia repair, tonsillectomy Cardiac/Vasc Procedures-Invasive: cardiac cath (left) Jul 2008, Cardiology Procedures-NonInvasive: myocardial perfusion (Nuc) Jul 2009, stress echo Jul 2012 Cardiac Cath Results: AMEE Stent OM 04 Jul 2008 PMHx Stress Echo Results: 07/15 Normal stress echocardiogram,Good exercise tolerance,No regional wall motion abnormalities noted,Normal resting wall motion and no stress-induced wall motion abnormality,Trace TR, Mild AR. Left Ventricular Ejection Fraction: EF normal by cath -Jul 2008, 07/12 EF 63% by nuc, EF 55-60% baseline, <GT>70% stress by stress echo 07/15 Nuclear Results: 07/12 no ischemia/infarction, no WMA LVEF of +70% documented via stress echo on 07/17/2012 FAMILY HISTORY: Family - father whole side of family has heart pr; Father - and heart; Uncle(M) - high chol; SOCIAL HISTORY Alcohol Use - drinks occasionally and beer; Smoking - used to smoke but quit and stop 1969; Diet - caffeine use-3-4 per day and regular diet without modifications; Lifestyle - , children and drives car; Exercise - some exercise, treadmill, for approximately 15 minutes and 2-3 days per week; Seat Belt Use - always; Occupation - retired; Sexual Activity - did not discuss sexual history; Residence - lives with female partner; Place of - [place]; REVIEW OF SYSTEMS GENERAL no change in weight, feels well, no change in appetite, positive for energy INTEGUMENTARY lesions on skin and face EYES no blurred vision, eye pain, or discharge., wears eye glasses/contact lenses EARS, NOSE, THROAT, MOUTH denies any hearing loss, epistaxis, hoarseness or difficulty speaking. RESPIRATORY positive for snoring CARDIOVASCULAR chest pain, I've had chest pains here and there, negative for palpitations, negative for dizziness, negative for edema ABDOMINAL normal for pt to go from diarrhea to constipation daily GENITOURINARY-MALE nocturia x 1 MUSCULOSKELETAL mild pain upper back NEUROLOGICAL denies any history of recurrent headaches, strokes, TIA, or seizure disorder. PSYCHIATRIC Sleeping well no problems ENDOCRINE denies any history of thyroid disease or diabetes mellitus. HEMATOLOGICAL/IMMUNOLOGIC denies any food allergies, seasonal allergies, bleeding disorders. PHYSICAL EXAMINATION VITAL SIGNS: Blood Pressure: 119/77Sitting, Right arm, large cuff Pulse- 48.00/min. Weight- 196.90 lbs. Height- 69.5 BMI Measurement: 28 CONSTITUTIONAL [...] time, person and place. MEDICATIONS UPDATED/STARTED TODAY: cinnamon bark 500 mg capsule, 1 p.o. daily, #0 (Zero) Flonase 50 mcg/actuation [place], Suspension, Take as Directed, #0 (Zero) Lotrisone 1-0.05 % Cream, Take as Directed, #0 (Zero) Vitamin D2 50,000 unit capsule, two times weekly as directed, #0 MEDICATIONS REFILLED/STOPPED TODAY: Amitriptyline 10 mg Tablet 1 p.o. as Directed-prn 0 Treatment Completed, Vitamin D 50 and 00 unit Capsule three times a weekly for a month 1 p.o. daily #0 Directions Changed-No Abbrvs IMPRESSIONS/PLAN 1. Known coronary artery disease, with a history of a non-ST elevation UT, with stenting to his large OM. His recent stress echo was normal. He has not had any anginal symptoms. 2. Dyslipidemia. He has had a history of HDL deficiency. His LDL has been at goal. He is on niacin for his HDL deficiency; however, with the AIM HIGH trial, which did not show improved cardiovascular outcomes, I discussed this with him and certainly he has a six-month fill of this medication that he is going to finish out. At that point in time, he is going to discontinue it and have his cholesterol rechecked. I have encouraged him to continue to work on diet and exercise and weight loss in addition. 3. Hypertension. Well controlled. 4. I will have him return in one year for a follow-up visit with Dr. Holder. If he has any problemsin the interim, certainly we would be happy to see him sooner. TODAYS ORDERS 1. F/U with Manav Holder MD 1 year RADHA Noel documented in this encounter Plan of Treatment Not on file documented as of this encounter Visit Diagnoses Not on filedocumented in this encounter Care Teams Credentialer Relationship Specialty Start Date End Date Lakshmi Alston PCP - General 07/09/12 06/02/16 [place] [address] [place] [address] PCP - General Family Practice 06/03/16 05/26/22 [place] [address] [place] [address] PCP - Assigned PCP 04/26/16 10/06/18 [place] [address] [place] [address] PCP - General 05/27/22 [place] [address] [place] [address] Assigned PCP 04/26/16 02/15/22 Savage Estrella [facility] [address] [place] [address] Pharmacist Pharmacist 12/07/18 [place] [address] [place] [address] Assigned PCP 02/16/22 Todd Shaw MD [address] [place] [place] [address] Assigned Surgical Provider 02/23/22 Sukhwinder Collins MD [address] [place] [address] [id number] Assigned Surgical Provider 03/30/2204/05/22 Todd Shaw MD [address] [place] [address] [place] [address] Assigned Surgical Provider 04/06/22 Fritz Cantu, ZIA Personal Advocate & Liaison (PAL) Nurse 08/16/22 12/02/23 Keiry Hernandez PASusanneC [address] [place] [address] Physician Flash Oven Operator Dermatology 06/02/23 documented as of this encounter
--- OUTSIDE RECORDS SUMMARY | 2024-04-27 08:50 | XMS_ITS | Encounter Summary ---
Author Organization [facility] Address [address] [place] [address]. [place] [address] Care Team Providers Care Spindle Carver Name Role Phone Glenys Obrien MD Primary Care Provider Glenys Obrien MD Unavailable Savage Estrella [facility] Unavailable Unavailable Coming Katharine De Oliveira MD Unavailable [phone] Todd Shaw MD Unavailable Sukhwinder Collins MD Unavailable Todd Shaw MD Unavailable Coming Katharine De Oliveira MD Primary Care Provid er Fritz Cantu RN Unavailable Unavailab Keiry Estes PA-C Unavailable [phone] Encounter Details Date Type Department Care Team (Late st Contact Info) Description 02/05/2022 [facility] [place] [address] [place] [address] Debbie Woodruff Social History Tobacco Use Types Packs/Day Years Used Date Smoking Tobacco: Former Cigarettes 0.5 10 1 398 - 7271 Smokeless Tobacco: Never Alcohol Use Standard Drinks/Week Comments Yes 0 (1 standard drink = 0.6 oz pur e alcohol) socially Social Connection and Isolat ion Panel [NHANES] Answer Date Recorded Frequency of Communication w ith Friends and Family More than three times a week 05/09/2019 Frequency of Social Gatherin gs with Friends and Family More than three times a week 05/09/2019 Attends Orthodox Services Never 05/09 Active Member of Clubs [...] PHQ-2 Answer Date Recorded PHQ-2 Score 0 01/22/2022 [facility] - Occupational Stress [...] Orientation Straight 05/09/2019 9: 19 AM CDT COVID-19 Exposure Response Date Recorded In the last 10 days, have yo u been in contact with someone who was confirmed or suspected to have Coronavirus/COVID-19? No / Unsure 02/06/2022 8:58 AM CDT documented as of this encounter Plan of Treatment Not on file documented as of this encounter Visit Diagnoses Not on filedocumented in this encounter Additional Health Concerns Assessment Noted Time PHQ-9 Depression Total Score: 3 05/22/20 21 7:03 AM CDT documented as of this encounter Care Teams Spindle Carver Relationship Specialty [place] [address] [place] [address] PCP - General Family Practice 06/03/16 05/26/22 [place] [address] [place] [address] PCP - General 05/27/22 [place] [address] [place] [address] Assigned PCP 04/26/16 02/15/22 Savage Estrella [facility] [address] [place] [address] Pharmacist Pharmacist 12/07/18 [place] [address] [place] [address] Assigned PCP 02/16/22 Todd Shaw MD [address] [address] [address] [place] [address] Assigned Surgical Provider 02/23/22 Sukhwinder Collins MD [address] [address] Assigned Surgical Provider 03/30/2204/05/22 Todd Shaw MD [address] [address] Assigned Surgical Provider 04/06/22 Fritz Cantu, RN Personal Advocate & Liaison (PAL) Nurse 08/16/22 12/02/23 Keiry Hernandez, PA-C [address] [place] [address] Physician Supervisor Inspection Room Dermatology 06/02/23 documented as of this encounter
--- OUTSIDE RECORDS SUMMARY | 2024-04-27 08:50 | XMS_ITS | Encounter Summary ---
Author Organization [facility] Address [facility] [place] [address] Care Team Providers Care Adobe Flex Developer Name Role Phone Savage Estrella [facility] Unavailable Unavailable Coming Katharine De Oliveira MD Unavailable [phone] Todd Shaw MD Unavailable Coming Katharine De Oliveira MD Primary Care Provid er Fritz Cantu RN Unavailable Unavailab Keiry Estes PA-C Unavailable Reason for Visit * Reason Onset Date Comments Medication Question 06/21/2022 Encounter Details Date Type Department Care Team (Late st Contact Info) Description 06/21/2022 Telephone [facility] [address] [place] [address] [place] [id number] [place] [address] [phone] Medication Question Social History Tobacco Use Types Packs/Day Years Used Date Smoking Tobacco: Former Cigarettes 0.5 10 1 599 - 2469 Smokeless Tobacco: Never Alcohol Use Standard Drinks/Week Comments Yes 0 (1 standard drink = 0.6 oz pur e alcohol) socially Social Connection and Isolat ion Panel [NHANES] Answer Date Recorded In a typical week, how many times do you talk on the phone with family, friends, or neighbors? More than three times a week 05/28/2022 How often do you get togethe r with friends or relatives? Twice a week 05/28/2022 How often do you attend chur ch or rastafarian services? Never 05/28/2022 Do you belong to any clubs o r organizations such as zoroastrian groups, unions, fraternal or athletic groups, or school groups? No 05/28/2022 Attends Club or Organization Meetings Not on nora e 05/28/2022 Are you , , di vorced, , never , or living with a partner? Living with partner 05/28/2022 AUDIT-C Answer Date Recorded Q1: How often do you have a drink containing alcohol? 4 or more times a week 05/28/2022 Q2: How many drinks containi ng alcohol do you have on a typical day when you are drinking? 1 or 2 Q3: How often do you have si x or more drinks on one occasion? Never 05/28/2022 Overall Financial Resource Strain (CARDIA) Answe r Date Recorded How hard is it for you to pa y for the very basics like food, housing, medical care, and heating? Not hard at all 05/28/2022 PHQ-2 Answer Date Recorded PHQ-2 Score 0 05/28/2022 [facility]ational Stress Questionnaire Answer Date Recorded Do you feel stress - tense, restless, nervous, or anxious, or unable to sleep at night because your mind is troubled all the time - these days? Only a little 05/28/2022 Exercise Vital Sign Answer Date Recorde d On average, how many days pe r week do you engage in moderate to strenuous exercise (like a brisk walk)? 0 days 05/28/2022 On average, how many minutes do you engage in exercise at this level? 0 min 05/28/2022 Hunger Vital Sign Answer Date Recorded Within the past 12 months, y ou worried that your food would run out before you got the money to buy more. Never true 05/28/20 Within the past 12 months, t he food you bought just didn't last and you didn't have money to get more. Never true 05/28/2022 PRAPARE - Transportation Answer Date Re corded In the past 12 months, has l ack of transportation kept you from medical appointments or from getting medications? No 05/05 In the past 12 months, has l ack of transportation kept you from meetings, work, or from getting things needed for daily living? No 05/28/2022 Housing Stability Vital Sign Answer Triston e Recorded In the last 12 months, was t here a time when you were not able to pay the mortgage or rent on time? No 05/28/2022 In the last 12 months, how many places have you lived? 1 05/28/2022 In the last 12 months, was t here a time when you did not have a steady place to sleep or slept in a retirement (including now)? No 05/28/2022 Education Answer Date Recorded What is the [...] suspected to have Coronavirus/COVID-19? No / Unsure 05/28/2022 7:45 AM CDT documented as of this encounter Last Filed Vital Signs Vital Sign Reading Time Taken Comments Blood Pressure 146/94 06/21/2022 12:00 PM FIRST GRADE TEACHER Pulse - - Temperature - - Respiratory Rate - - Oxygen Saturation - - Inhaled Oxygen Concentration - - Weight - - Height - - Body Mass Index - - documented in this encounter Miscellaneous Notes * Telephone Encounter - Katharine Abbott MD - 06/24/2022 2:19 PM FIRST GRADE TEACHER Lab order signed T GRADE TEACHER * Telephone Encounter - Ingrid Hughes RN - 06/24/2022 7:[address]Coming De Oliveira -Please sign order for BMP Shared message from PCP that safe to travel. -Advised pt to get BMP once they get there and settled, within 1-2 weeks. No labs pended, will janes up and route to PCP to sign. -Pt plans on leaving in the morning. Ingrid Sethi RN, BSN, PHN - Patient Advocate Liaison - [facility] T GRADE TEACHER * Telephone Encounter - Katharine Abbott MD - 06/21/2022 5:59 PM FIRST GRADE TEACHER I think they are fine to go on their trip. He should get a BMP when he gets there to make sure electrolytes are all still fine. T GRADE TEACHER * Telephone Encounter - Ingrid Hughes RN - 06/21/2022 2:[address] Soha De Oliveira -Pt leaves on FridayJune 24, they are driving and pulling a travel trailer. Pt wants to know if they are safe to go or if you want them to hold off a couple days? Do you want any lab tests in 1-2 weeks? They will have access to [employer] to get completed. Times for Medications Metoprolol - around 8am Lisinopril - around 9:30 PM just before bed ZIA PEDRO advised that new medication was sent to pharmacy, educated on when to take meds. -Asked pt to send a [employer] message in 1 week from starting medication with readings since adding new medication. Ingrid Sethi RN, BSN, PHN - Patient Advocate Liaison - [facility] T GRADE TEACHER * Telephone Encounter - Katharine Abbott MD - 06/21/2022 1:07 PM FIRST GRADE TEACHER Lisinopril dose was increased to 40 mg and pressures do not seem to be improving. I would not increase the Metoprolol because his heart rate is on the lower end of normal from what we have. He should not go below 60. I would add Amlodipine 5 mg to his regimen and see how he does. Find out when he is taking his lisinopril and his metoprolol. He should try one in the evening and one in the morning. If he is alreadydoing this, add the amlodipine when he takes the Metoprolol. Also find out when he leaves the state. T GRADE TEACHER * Telephone Encounter - Ingrid Hughes RN - 06/21/2022 12:[address] Soha De Oliveira Pt's sig corinne Guallpa dropped off BP readings from 06/15-06/21. Per Saloni, they are getting ready to leave for the Winter and she would like to know if pt's medication needs to be adjusted. -Normal readings for patient BP before Pill BP few hours after pill 06-15-22 149/92 136/82 139/83 06-16-22 140/79 06-17-22 148/90 139/86 159/77 06-18-22 143/90 143/86 129/83 06-19-22 160/95 151/92 06-20-22 151/89 160/96 152/88 06-21-22 146/94 151/84 - 1hr after Desired Outcome: would like a call backin order to find out if his med needs to be changed. T GRADE TEACHER * Telephone Encounter - Nona Beatty RN - 06/21/2022 11:02 AM CST Routing to patient's PAL RN. Nona Capps RN [facility] Adv[facility] Liaison ([facility]AL[facility] T GRADE TEACHER * Telephone Encounter - Maria De Jesus Mcintyre V - 06/21/2022 9:11 AM CST Pt's sig corinne Guallpa came into clinic and dropped off BP readings from 06/15- 06/21. Per Saloni, they are getting ready to leave for the Winter and she would like to know if pt's medication needs to be adjusted. Saloni stated pt's BP readings have been normal. Saloni stated pt would like a cb in order to find out if his med needs to be changed. Pt's BP readings dropped off at [facility]. T GRADE TEACHER documented in this encounter Plan of Treatment Not on file documented as of this encounter Results * (ABNORMAL) Basic metabolic panel (Ca, Cl, CO2, Creat, Gluc, K, Na, BUN) (01/08/2023 9:50 AM CDT) Sodium 142 136 - 145 mmol/L 01/08/2023 4:05 PM CDT [facility] Potassium 4.0 3.4 - 5.3 mmol/L 01/08/2023 4:05 PM CDT [facility] Chloride 105 98 - 107 mmol/L 01/08/2023 4:05 PM CDT [facility] Carbon Dioxide (CO2) 25 22 - 29 mmol/L 01/08/2023 4:05 PM CDT [facility] Anion Gap 12 7 - 15 mmol/L 01/08/2023 4:05 PM CDT [facility] Urea Nitrogen 12.9 8.0 - 23.0 mg/dL 01/08/2023 4:05 PM CDT [facility] Creatinine 1.36(H) 0.67 - 1.17 mg/dL 01/08/2023 4:05 PM CDT [facility] Calcium 9.1 8.8 - 10.2 mg/dL 01/08/2023 4:05 PM CDT [facility] Glucose 109(H) 70 - 99 mg/dL 01/08/2023 4:05 PM CDT [facility] GFR Estimate 53(L) >60 mL/min/1.7 3m2 01/08/2023 4:05 PM CDT [facility] Comment:eGFR calculated usin g 2020 CKD-EPI equation. Blood BLOOD SPECIMEN / Unknown Venipuncture / Unknown 01/08/2023 9:50 AM CDT 01/08/2023 9:50 AM CDT Katharine De Oliveira MD LAB - BLOOD ORDERABLES [facility] [address] [facility] [address] [facility], [address] [place] [address], [facility] [phone] documented in this encounter Visit Diagnoses Diagnosis Benign essential hypertension- Primary Essential hypertension, benign documented in this encounter Additional Health Concerns Assessment Noted Time PHQ-9 Depression Total Score: 3 05/22/20 21 7:03 AM CDT documented as of this encounter Care Teams Adobe Flex Developer Relationship Specialty Start [place] [address] [place] [address] PCP - General 05/27/22 Savage Estrella RPH [address] [place] [address] Pharmacist Pharmacist 12/07/18 [place] [address] [place] [address] Assigned PCP 02/16/22 Todd Shaw MD [address] [id number] [place] [address] Assigned Surgical Provider 04/06/22 Fritz Cantu, RN Personal Advocate & Liaison (PAL) Nurse 08/16/22 12/02/23 Keiry Hernandez, PA-C [address] [facility] [address] Physician Residential Property Manager Dermatology 06/02/23 documented as of this encounter
--- OUTSIDE RECORDS SUMMARY | 2024-04-27 08:50 | XMS_ITS | Encounter Summary ---
Author Organization [place] Address [facility] [place] [address] Care Team Providers Care Maintenance Engineer Name Role Phone Glenys Obrien MD Primary Care Provider [phone] Glenys Obrien MD Unavailable Glenys Obrien MD Unavailable Savage Estrella [facility] Unavailable Unavailable Coming Katharine De Oliveira MD Unavailable + [phone] Todd hSaw MD Unavailable [phone] Sukhwinder Collins MD Unavailable Todd Shaw MD Unavailable [phone] Coming Katharine De Oliveira MD Primary Care Provid er Fritz Cantu RN Unavailable Unavailab Keiry Estes PA-C Unavailable [phone] Reason for Visit * Reason Onset Date Comments Frances Communication 12/03/2017 records Encounter Details Date Type Department Care Team (Latest Contact Info) Description 12/03/2017 [facility] [address] [phone] [place] [address] [facility] [place] [address] MyChart Communication (records) Social History Tobacco Use Types Packs/Day Years Used Date Smoking Tobacco: Former Smokeless Tobacco: Never Alcohol Use Standard Drinks/Week Comments Yes 0 (1 standard drink = 0.6 oz pur e alcohol) socially Sex and Gender Information Value Date Recorded Sex Assigned at Male 05/09/2019 9:19 AM CDT Gender Identity Male 05/09/2019 9:19 AM CDT Sexual Orientation Straight 05/09/2019 9: 19 AM CDT documented as of this encounter Plan of Treatment Not on file documented as of this encounter Visit Diagnoses Not on filedocumented in this encounter Care Teams Maintenance Engineer Relationship Specialty [place] [address] [facility] [place] [address] PCP - General Family Practice 06/03/16 05/26/22 [place] [address] [facility] [place] [address] PCP - Assigned PCP 04/26/16 10/06/18 [place] [address] [place] [address] PCP - General 05/27/22 [place] [address] [facility] [place] [address] Assigned PCP 04/26/16 02/15/22 Savage Estrella RPH [address] [place] [address] Pharmacist Pharmacist 12/07/18 [place] [address] [place] [address] Assigned PCP 02/16/22 Todd Shaw MD [address] [place] [address] Assigned Surgical Provider 02/23/22 Sukhwinder Collins MD [address] [place] [address] [id number] Assigned Surgical Provider 03/30/2204/05/22 Todd Shaw MD [address] [place] [address] Assigned Surgical Provider 04/06/22 Fritz Cantu RN Personal Advocate & Liaison (PAL) Nurse 08/16/22 12/02/23 Keiry Hernandez PASusanneC [address] [place] [address] Physician Utility Gelatin Maker Dermatology 06/02/23 documented as of this encounter
--- OUTSIDE RECORDS SUMMARY | 2024-04-27 08:50 | XMS_ITS | Referral Summary ---
Author Organization [place] Address [address] [place] [address]. [place] [address] Care Team Providers Care Gaming Associate Name Role Phone Savage Estrella [facility] Unavailable Unavailable Coming Katharine De Oliveira MD Unavailable [phone] Coming Katharine De Oliveira MD Primary Care Provid er Keiry Hernandez PA-C Unavailable [phone] Allergies No known active allergies Medications Medication [...] (NITROSTAT) 0.4 MG sublingual tabletIndications:His tory of [place] (myocardial infarction) Place 1 tablet (0.4 mg) [...] 25 MG 24 hr tabletIndications:His tory of NV (myocardial infarction) Take 1 tablet (25 mg) [...] 05/28/2017 Acute gouty arthritis 06/03/2016 History of NV (myocardial infarction) 05/14/2016 Last Assessment & Plan: [...] 05/08/2021 COVID-19 Monovalent 12+ (Pfizer 2021) 12/12/2021 O9t5-12 Novel Flu 08/14/2009 Influenza (High Dose) Trival [...] d (SHINGRIX) 10/26/2019,05/12/2019 Zoster vaccine, live 08/12/2011 Social History Tobacco Use Types Packs/Day Years [...] 05/29/2023 How often do you attend chur or adventism services? Never 05/29/2023 Do you belong to any clubs o r organizations such as jewish groups, unions, fraternal or athletic groups, or [...] Answer Date Recorded PHQ-2 Score 1 06/02/2023 [facility]ational Stress Questionnaire Answer Date [...] in an abandoned building, in an overnight residential, or couch-surfing.) Yes 05/29/2023 Are you worried [...] 06/05/2023 12:48 PM CDT Plan of Treatment Not on file Procedures Procedure Name Priority Date/Time Associated Diagnosis [...] control, and institution of therapy with an skfjagwzwov-hzzegdpzfr-gnxxzs (RENEE) inhibitor (if the patient can tolerate it). ?? Urine MID-STREAM URINE SPECIMEN / Unknown Non-blood Collection / Unknown 06/02/2023 10:34 AM CDT 06/02/2023 10:34 AM CDT November Rosa De Oliveira MD LAB - URINE ORDERABLES [facility] Core Lab [address] [facility], [address] [place] [id number], [facility] [phone] * (ABNORMAL) Lipid panel reflex to direct [...] MD LAB - BLOOD ORDERABLES [facility] Core Lab [address] [facility], [address] [place] [address], [facility] [phone] * (ABNORMAL) Comprehensive metabolic panel (BMP + Alb, Alk Phos, ALT, AST, Total. Bili, TP) (06/02/2023 10:30 AM CDT) [facility] Sodium 142 135 - 145 mmol/L 06/02/2023 [...] MD LAB - BLOOD ORDERABLES [facility] Core Lab [address] [facility], [address] [place] [address], [facility] [phone] * CT Chest w/o Contrast (02/06/2022 12:43 [...] the coronary arteries. 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
--- OUTSIDE RECORDS SUMMARY | 2024-04-27 08:50 | XMS_ITS | Encounter Summary ---
Author Organization [place] Address [address] [place] [address]. [place] [address] Care Team Providers Care Tree Trimming Supervisor Name Role Phone Glenys Obrien MD Primary Care Provider Glenys Obrien MD Unavailable Savage Estrella [facility] Unavailable Unavailable Coming Katharine De Oliveira MD Unavailable [phone] Todd Shaw MD Unavailable Sukhwinder Collins MD Unavailable Todd Shaw MD Unavailable Coming Katharine De Oliveira MD Primary Care Provid er Fritz Cantu RN Unavailable Unavailab Keiry Estes PA-C Unavailable [phone] Encounter Details Date Type Department Care Team (Late st Contact Info) Description 07/30/2021 [facility] [address] [phone] [place] [id number] [place] [address] [id number] NSTEMI (non-ST elevated myocardial infarction) (H) Social History Tobacco Use Types Packs/Day Years [...] than three times a week 05/09/2019 Attends Congregational Services Never 05/09 Active Member of Clubs [...] Answer Date Recorded PHQ-2 Score 0 05/21/2021 [facility] - [...] Sign Reading Time Taken Comments Blood Pressure 134/76 07/31/2021 7:55 AM ZOO KEEPER Pulse - - Temperature - - Respiratory Rate - - Oxygen Saturation - - Inhaled Oxygen Concentration - - Weight - - Height - - Body Mass Index - - documented in this encounter Plan of Treatment Not on file documented as of this encounter Visit Diagnoses Diagnosis NSTEMI (non-ST elevated myocardial infarction) Acute myocardial infarction, subendocardial infarction, episode of care unspecified documented in this encounter Additional Health Concerns Assessment Noted Time PHQ-9 Depression Total Score: 3 05/22/20 21 7:03 AM CDT documented as of this encounter Care Teams Tree Trimming Supervisor Relationship Specialty [place] [address] [place] [address] PCP - General Family Practice 06/03/16 05/26/22 [place] [address] [address] [facility] [address] [place] [address] PCP - General 05/27/22 [place] [address] [address] [place] [address] Assigned PCP 04/26/16 02/15/22 Savage Estrella [facility] [address] [facility] [employer] [place] [address] Pharmacist Pharmacist 12/07/18 [place] [address] [facility] [employer] [facility] [place] [address] Assigned PCP 02/16/22 Todd Shaw MD [address] [place] [address] Assigned Surgical Provider 02/23/22 Sukhwinder Collins MD [address] [place] [address] Assigned Surgical Provider 03/30/2204/05/22 Todd Shaw MD [address] [place] [address] Assigned Surgical Provider 04/06/22 Fritz Cantu RN Personal Advocate & Liaison (PAL) Nurse 08/16/22 12/02/23 Keiry Hernandez, PASusanneC [address] [place] [address] Physician Tearoom Host Dermatology 06/02/23 documented as of this encounter
--- OUTSIDE RECORDS SUMMARY | 2024-04-27 08:50 | XMS_ITS | Encounter Summary ---
Author Organization [place] Address [address] [place] [address]. [place] [address] Care Team Providers Care Manager Imaging Name Role Phone Lakshmi Alston Primary Care Provider Glenys Obrien MD Primary Care Provider [phone] Glenys Obrien MD Unavailable Glenys Obrien MD Unavailable Savage Estrella [facility] Unavailable Unavailable Coming Katharine De Oliveira MD Unavailable [phone] Todd Shaw MD Unavailable [phone] Sukhwinder Collins MD Unavailable Todd Shaw MD Unavailable Coming Katharine De Oliveira MD Primary Care Provid er Fritz Cantu RN Unavailable Unavailab Keiry Estes PA-C Unavailable [phone] Encounter Details Date Type Department Care Team (Late st Contact Info) Description 07/24/2011 Office Visit-[facility] Heart [address] [place] [address] Manav Holder MD Social History Tobacco Use Types Packs/Day Years Used Date Smoking Tobacco: Never Assessed Sex and Gender Information Value Date Recorded Sex Assigned at Male 05/09/2019 9:19 AM CDT Gender Identity Male 05/09/2019 9:19 AM CDT Sexual Orientation Straight 05/09/2019 9: 19 AM CDT documented as of this encounter Progress Notes * Manav Holder MD - 07/31/2011 12:24 PM CST Progress Note Created by: Manav Holder M.D. DATE: 07/24/2011 RASHMI MCCLURE DATE OF : 1940 AGE: [age] years old Referring Physician: LAKSHMI ALSTON Referring Clinic: [facility] CURRENT DIAGNOSES 1. - Hyperlipidemia, 272.4 2. KY-S/P Non-Q wave, 412 3. - CAD, 414.00 4. PTCA- OM1 AMEE 07/11, V45.82 5. - Hypertension, 401.1 ALLERGIES NKA MEDICATIONS (prior to changes made today) 1. Amitriptyline 10 mg Tablet, 1 p.o. as Directed-prn 2. Aspirin 81 Mg Tablet, 1 p.o. daily 3. Atenolol 25 mg Tablet, 1 p.o. twice daily 4. Fish Oil 1000mg, 2 p.o. daily 5. Glusosamine Hcl/ Chondroilin Sulfate 1500 Mg./ 1200 Mg., 1 p.o. daily 6. Lisinopril 5 Mg Tablet, 1 p.o. daily 7. Niacin 1,000 mg Tablet Sustained Release, 2 p.o. daily 8. NitroQuick 0.4 mg Tablet, Sublingual, Take as Directed 9. Simvastatin 40 mg Tablet, 1 p.o. daily 10. Triamcinolone Acetonide 0.1 % Cream, Take as Directed 11. Vitamin D 50,000 unit Capsule, three times a weekly for a month 1 p.o. daily CHIEF COMPLAINTS Followup of - CAD, Followup of - Hyperlipidemia, Followup of KY-S/P Non-Q wave and Followup of PTCA- OM1 AMEE 07/11 HISTORY OF PRESENT ILLNESS I had the pleasure of seeing Mr. Mcclure today. This 70-year-old gentleman was seen in followup of his coronary artery disease. He is now three years out from his non-ST elevation myocardial infarction, subsequently treated with stenting of a large OM branch. Clinically, he has done well this year. He continues to have a good activity level. With this he has no complaints of any chest discomfort, dyspnea, neck, arm, or jaw discomfort with activity, on histreadmill, or at other times. He is without heart failure or arrhythmia symptoms. He denies myalgias or muscle weakness. He denies focal neurologic symptoms or claudication. Recent labs from your office are reviewed with him, showing normal electrolytes, normal renal function, with a creatinine of 0.8 and a normal fasting blood glucose. Lipids are similar to last year with LDL at goal at 62, with an HDL of 37, and triglycerides minimally elevated at 169. Blood pressure is appropriate at 118/76. His cardiopulmonary exam is normal. Electrocardiogram from your office dated 07/02/2011 is reviewed with him. This shows sinus rhythm. Normal axis and intervals. It is essentially within normal limits. PAST HISTORY Past Medical Illnesses: Hyperglycemia, hypertension, pneumonia, hyperlipidemia, diabetes mellitus-diet controlled, nodular prostate Past Cardiac Illnesses: coronary artery disease, S/P myocardial infarction-non Q wave, angina Surgeries/Procedures - General: hernia repair, tonsillectomy Cardiac/Vasc Procedures-Invasive: cardiac cath (left) Jul 2008, Cardiology Procedures-NonInvasive: myocardial perfusion (Nuc) Jul 2009 Cardiac Cath Results: AMEE Stent OM 04 Jul 2008 Left Ventricular Ejection Fraction: EF normal by cath -Jul 2008, 07/12 EF 63% by nuc Nuclear Results: 07/12 no ischemia/infarction, no WMA EF normal by cath -Jul 2008 and 07/12 EF 63% by nuc SOCIAL HISTORY Alcohol Use - drinks occasionally [...] lives with female partner; Place of - [place]; REVIEW OF SYSTEMS GENERAL no change in weight, feels well INTEGUMENTARY denies any change in hair or nails, rashes, or skin lesions. EYES no blurred vision, eye pain, or discharge., wears eye glasses/contact lenses EARS, NOSE, THROAT, MOUTH denies any hearing loss, epistaxis, hoarseness or difficulty speaking. RESPIRATORY dyspnea, breathes harder when walking up the stairs today CARDIOVASCULAR per HPI ABDOMINAL denies ulcer disease, [...] disorders. PHYSICAL EXAMINATION VITAL SIGNS: Blood Pressure: 118/76Sitting, Left arm, large cuff Pulse- 62.00/min. Weight- 196.00 lbs. Height- 69.5 CONSTITUTIONAL cooperative, alert and oriented,well developed, well [...] time, person and place. MEDICATIONS UPDATED/STARTED TODAY: Vitamin D 50,000 unit Capsule, three times a weekly for a month 1 p.o. daily, #0 MEDICATIONS REFILLED/STOPPED TODAY: Vitamin D-3 2,000 unit Tablet 1 p.o. daily #0 Medication Change IMPRESSION/PLAN: 1. Coronary artery disease, with history of non-ST elevation myocardial infarction and subsequent coronary stenting. Currently stable, without ischemic heart failure or arrhythmia symptoms. In followup he had a normal ejection fraction of 63%. A stress study in 2008, done a year later, showed no ischemia. He has done very well and I reviewed this with him. 2. Dyslipidemia. We talked again about atriglyceride-lowering diet, otherwise he is doing well. He should continue his current regimen. 3. History of hypertension, controlled. It is a pleasure seeing this gentleman doing well. Thank you for having me involved in his care, and please let me know if you have any questions. TODAYS ORDERS 1. F/U with Shaila Vargas PA-C 1 year 2. Treadmill Stress Echo 1 year, OFF MEDS, Manav Holder M.D. documented in this encounter Plan of Treatment Not on file documented as of this encounter Visit Diagnoses Not on filedocumented in this encounter Care Teams Manager Imaging Relationship Specialty Start Date End Date Lakshmi Alston PCP - General 07/09/12 06/02/16 [place] [address] [place] [address] PCP - General Family Practice 06/03/16 05/26/22 [place] [address] [place] [address] PCP - Assigned PCP 04/26/16 10/06/18 [place] [address] [place] [address] PCP - General 05/27/22 [place] [address] [facility] [facility] [facility] [place] [address] Assigned PCP 04/26/16 02/15/22 Savage Estrella [facility] [address] [place] [address] Pharmacist Pharmacist 12/07/18 [place] [address] [place] [address] Assigned PCP 02/16/22 Todd Shaw MD [id number] [place] [address] Assigned Surgical Provider 02/23/22 Sukhwinder Collins MD [address] [address] Assigned Surgical Provider 03/30/2204/05/22 Todd Shaw MD [id number] [place] [address] Assigned Surgical Provider 04/06/22 Fritz Cantu, ZIA Personal Advocate & Liaison (PAL) Nurse 08/16/22 12/02/23 Keiry Hernandez, PA-C [address] [facility] [place] [address] Physician Senior Test Engineer Dermatology 06/02/23 documented as of this encounter
--- OUTSIDE RECORDS SUMMARY | 2024-04-27 08:50 | XMS_ITS | Encounter Summary ---
Author Organization [facility] Address [address] [place] [address]. [place] [address] Care Team Providers Care Door Worker Name Role Phone Que Crump Primary Care Provider Glenys Obrien MD Primary Care Provider Glenys Obrien MD Unavailable Glenys Obrien MD Unavailable Savage Estrella [facility] Unavailable Unavailable Coming Katharine De Oliveira MD Unavailable [phone] Todd Shaw MD Unavailable [phone] Sukhwinder Collins MD Unavailable Todd Shaw MD Unavailable Coming Katharine De Oliveira MD Primary Care Provid er Fritz Cantu RN Unavailable Unavailab Keiry Estes PA-C Unavailable [phone] Encounter Details Date Type Department Care Team (Late st Contact Info) Description 08/02/2009 Office Visit-[facility] Heart [address] [place] [address] Manav Holder MD Social History Tobacco Use Types Packs/Day Years Used Date Smoking Tobacco: Never Assessed Sex and Gender Information Value Date Recorded Sex Assigned at Male 05/09/2019 9:19 AM CDT Gender Identity Male 05/09/2019 9:19 AM CDT Sexual Orientation Straight 05/09/2019 9: 19 AM CDT documented as of this encounter Progress Notes * Manav Holder MD - 08/07/2009 9:23 AM CST Progress Note Created by: Manav Holder M.D. DATE: 08/02/2009 RASHMI MCCLURE DATE OF : 1940 AGE: [age] years old Referring Physician: MELI DONOHUE Referring Clinic: [facility] CURRENT DIAGNOSES 1. PTCA- OM1 AMEE 07/11, V45.82 2. - CAD, 414.00 3. - Hyperlipidemia, 272.4 4. MO-S/P Non-Q wave, 412 5. - Hypertension, 401.1 ALLERGIES NKA MEDICATIONS (prior to changes made today) 1. Lisinopril 5 Mg Tablet, 1 p.o. daily 2. Simvastatin 40 mg Tablet, 1/2 tab daily 3. Triamcinolone Acetonide 0.1 % Cream, Take as Directed 4. NitroQuick 0.4 mg Tablet, Sublingual, Take as Directed 5. Niacin 1,000 mg Tablet Sustained Release, 2 p.o. daily 6. Amitriptyline 10 mg Tablet, 1 p.o. as Directed-prn 7. Fish Oil 1000mg, 2 p.o. daily 8. Aspirin 81 Mg Tablet, 1 p.o. daily 9. Daily Multivitamin Tablet, 1 p.o. daily 10. Glusosamine Hcl/ Chondroilin Sulfate 1500 Mg./ 1200 Mg., 1 p.o. daily 11. Atenolol 25 mg Tablet, 1 p.o. twice daily 12. Plavix 75 mg Tablet, 1 p.o. daily CHIEF COMPLAINTS follow up stress test, Followup of - CAD and Followup of PTCA- OM1 AMEE 07/11 HISTORY OF PRESENT ILLNESS I had the pleasure of seeing Mr. Mcclure today. This 68-year-old gentleman is seen in followup of his history of an acute coronary syndrome with a tiny non-Q-wave myocardial infarction and subsequentstenting of a large obtuse marginal branch with a drug-eluting stent in July of 2008. This last 6 months he has felt well. He has felt well. He just got back from a trip to [place] and he has had no symptoms. He exercises reasonably and has no chest discomfort, dyspnea, or any limiting fatigue or other symptoms. He has had no recurrence of his ischemic-type symptoms. He denies orthopnea, edema, palpitations, or syncope. He is without myalgia, muscle weakness, claudication, or focal neurologic symptoms. He is tolerating his current medications without any side effects. Lipids are reviewed from Dr. Donohue in April of 2009, showing him at goal with triglycerides 127, total cholesterol 126, LDL 66. His HDL is 35 but this is up from the high 20s prior to initiation of treatment. LDL is down from around 111 at baseline. Blood pressure is well controlled at 100/72 and his cardiopulmonary exam is normal. He had a nuclear stress study on 07/17/2009. I reviewed the results with him. He was able to exercise for 10 minutes and 30 seconds on a Wes protocol and reached target heart rate. He had no chest discomfort or ST changes. The perfusion study was normal, without evidence for ischemia and with an ejection fraction of 65 to 70%. PAST HISTORY Past Medical Illnesses: Hyperglycemia, hypertension, [...] 07/12 EF 63% by nuc Nuclear Results: 12/ ischemia/infarction, no WMA SOCIAL HISTORY Alcohol Use [...] lives with female partner; Place of - [place]; REVIEW OF SYSTEMS GENERAL weight gain of approximately 5 lbs INTEGUMENTARY denies any change in hair or nails, rashes, or skin lesions. EYES no blurred vision, eye pain, or discharge., wears eye glasses/contact lenses EARS, NOSE, THROAT, MOUTH denies any hearing loss, epistaxis, hoarseness or difficulty speaking. RESPIRATORY denies dyspnea, snoring, cough, wheezing or hemoptysis. CARDIOVASCULAR palpitations, some last week for just a second ABDOMINAL denies ulcer disease, hematochezia or melena. MUSCULOSKELETAL mild pain upper back NEUROLOGICAL denies any history of recurrent headaches, strokes, TIA, or seizure disorder. PSYCHIATRIC sleep disturbance, reji wakes him with flushing/itching, Sleep well no problems, sometimes has flushing at night from niacin ENDOCRINE denies any history of thyroid disease or diabetes mellitus. HEMATOLOGICAL/IMMUNOLOGIC denies any food allergies, seasonal allergies, bleeding disorders. PHYSICAL EXAMINATION VITAL SIGNS: Blood Pressure: 100/72Sitting, Right arm, regular cuff Pulse- 52.00/min. Weight- 189.40 lbs. Height- 69.50 Temperature- .00 CONSTITUTIONAL cooperative, [...] time, person and place. MEDICATIONS UPDATED/STARTED TODAY: Lisinopril 5 Mg Tablet, 1 p.o. daily, #90 Simvastatin 40 mg Tablet, 1/2 tab daily, #0 MEDICATIONS REFILLED/STOPPED TODAY: Simvastatin 10 mg Tablet 1 p.o. qHS 0 Physician Order and Lisinopril 5 mg Tablet 1 p.o. daily #90 Refill IMPRESSION/PLAN: 1. Coronary artery disease. He is stable post a very small non-ST elevation myocardial infarction and subsequent stenting of a large OM with a drug-eluting stent. He has no ischemic heart failure or arrhythmia symptoms. Normal perfusion study. At this time, it has been over a year since his stent so I think he can discontinue his Plavix and discussed that with him. If he has any recurrent symptoms suggestive of or the same as his previous ischemia, he will take a 300 mg Plavix load and call us immediately. 2. Dyslipidemia, treated appropriately at this time with a combination of niacin and simvastatin. This should be continued. 3. Hypertension, controlled. I will continue his current regimen and I renewed his lisinopril prescription today. It is a pleasure seeing this gentleman doing well. Thank you for having me involved in his care. Please let me know if you have any questions. TODAYS ORDERS 1. F/U with Manav Holder MD 1 year Manav Holder M.D. documented in this encounter Plan of Treatment Not on file documented as of this encounter Visit Diagnoses Not on filedocumented in this encounter Care Teams Door Worker Relationship Specialty Start Date End Date Que Crump PCP - General 07/09/12 06/02/16 [place] [id number] [place] [address] PCP - General Family Practice 06/03/16 05/26/22 [place] [address] [address] PCP - Assigned PCP 04/26/16 10/06/18 [place] [address] [place], [place] [id number] PCP - General 05/27/22 [place] [address] [address] [employer] [address] Assigned PCP 04/26/16 02/15/22 Savage Estrella [facility] [address] [place] [address] Pharmacist Pharmacist 12/07/18 [place] [address] [place] [address] Assigned PCP 02/16/22 Todd Shaw MD [address] [place] [address] [place] [address] Assigned Surgical Provider 02/23/22 Sukhwinder Collins MD [address] [address] Assigned Surgical Provider 03/30/2204/05/22 Todd Shaw MD [address] [id number] [place] [address] Assigned Surgical Provider 04/06/22 Fritz Cantu RN Personal Advocate & Liaison (PAL) Nurse 08/16/22 12/02/23 Keiry Hernandez, PA-C [address] [place] [address] Physician Time Lock Expert Dermatology 06/02/23 documented as of this encounter
--- OUTSIDE RECORDS SUMMARY | 2024-04-27 08:51 | XMS_ITS | Encounter Summary ---
Author Organization [facility] Address [address] [place] [address]. [place] [address] Care Team Providers Care Algebraist Name Role Phone Que Crump Primary Care Provider [phone] Glenys Obrien MD Primary Care Provider Glenys Obrien MD Unavailable Glensy Obrien MD Unavailable Savage Estrella [facility] Unavailable Unavailable Coming Katharine De Oliveira MD Unavailable [phone] Todd Shaw MD Unavailable Sukhwinder Collins MD Unavailable Todd Shaw MD Unavailable [phone] Coming Katharine De Oliveira MD Primary Care Provid er Fritz Cantu RN Unavailable Unavailab Keiry Estes PA-C Unavailable [phone] Encounter Details Date Type Department Care Team (Late st Contact Info) Description 04/18/2009 Office Visit-[facility] Heart [address] [place] [address] Nancy Ferguson, CONSERVATION PLANNER TOOLING MANAGER [address] [facility] BECCA V[address] [place] [address] Social History Tobacco Use Types Packs/Day Years Used Date Smoking Tobacco: Never Assessed Sex and Gender Information Value Date Recorded Sex Assigned at Male 05/09/2019 9:19 AM CDT Gender Identity Male 05/09/2019 9:19 AM CDT Sexual Orientation Straight 05/09/2019 9: 19 AM CDT documented as of this encounter Progress Notes * Nancy Ferguson, DENTAL LABORATORY ASSISTANT - 04/19/2009 10:53 AM CDT Progress Note Created by: Nancy Ferguson N.P. [id number] DATE: 04/18/2009 RASHMI MCCLURE DATE OF : 1940 AGE: [age] years old Referring Physician: MELI GOLDBERG Referring Clinic: [facility] CURRENT DIAGNOSES 1. PTCA- OM1 AMEE 07/11, V45.82 2. - CAD, 414.00 3. - Hyperlipidemia, 272.4 4. IA-S/P Non-Q wave, 412 5. - Hypertension, 401.1 ALLERGIES NKA MEDICATIONS (prior to changes made today) 1. Atenolol 25 Mg, 1 p.o. b.i.d. 2. Plavix 75 mg, 1 p.o. q.d. 3. Nitroquick 0.4 mg, Take as Directed 4. Aspirin 81 mg, 1 p.o. q.d. 5. Simvastatin 10 mg, 1 p.o. qHS 6. Niacin 1000mg, 2 p.o. daily 7. Amitriptyline Hydrochloride 10 Mg, 1 p.o. as Directed-prn 8. Fish Oil 1000mg, 2 p.o. daily 9. Lisinopril 5mg, 1 p.o. daily 10. Multi Vitamin one, 1 p.o. q.d. 11. Glusosamine HCL/ Chondroilin Sulfate 1500 mg./ 1200 mg., 1 p.o. q.d. 12. Triamcinolone Acetonide Topical 0.1%, Take as Directed CHIEF COMPLAINTS follow up HISTORY OF PRESENT ILLNESS This is a delightful 68-year-old male who presents to [facility] today for a follow-up visit. He is a patient of Dr. Colorado. He is seen in our clinic for a past medical history of: 1. Coronary artery disease. 2. Mixed hyperlipidemia. 3. Hypertension. 4. Diet controlled diabetes. Ryan has a history of coronary artery disease and did suffer an acute coronary syndrome, which led to stenting of a large OM in July of 2008. In followup, he has been free from any anginal symptoms. He does have known preserved left ventricular function. He did have trivial left anterior descending disease and mild right coronary artery disease at the time of his angiogram. He does have mixed hyperlipidemia and has been on Niaspan and simvastatin. His Niaspan was recently changed to niacin due to cough. He returns today for lipid panel reassessment. Ryan tells me he has been feeling well. He denies any chest discomfort, neck, arm, or jaw pain with activity or at rest. He is not short of breath. He palpitations, lightheadedness, dizziness, or nearsyncope. He also denies orthopnea, paroxysmal nocturnal dyspnea, or peripheral edema. He is quite active and has no limitations in his activities of daily living and is feeling quite well. A lipid panel was drawn last week at his primary care physician's office. Triglyceride level 127, total cholesterol 126, HDL 35, LDL of 66. He tells me he has tolerated the switch from Niaspan to niacin without any difficulty. His blood pressure today is 105/67, with a heart rate of 57. His lungs are clear. There is no evidence of any jugular venous distention or peripheral edema. Further review of systems and physical exam are as noted below. PAST HISTORY Past Medical Illnesses: Hyperglycemia, hypertension, pneumonia, hyperlipidemia, diabetes mellitus-diet controlled Past Cardiac Illnesses: coronary artery disease, S/P myocardial infarction-non Q wave, angina Surgeries/Procedures - General: hernia repair Cardiology Procedures-Invasive: cardiac cath (left) Jul 2008, Cardiac Cath Results: AMEE Stent OM 04 Jul 2008 Left Ventricular Ejection Fraction: EF normal by cath -Jul 2008 FAMILY HISTORY: Family - father whole side [...] lives with female partner; Place of - [place]; REVIEW OF SYSTEMS GENERAL feels great, few times heart palpitation lasting a couple seconds, assymtomatic. Energy level good. INTEGUMENTARY denies any change in hair or nails, rashes, or skin lesions. EYES no blurred vision, eye pain, or discharge., wears eye glasses/contact lenses EARS, NOSE, THROAT, MOUTH denies any hearing loss, epistaxis, hoarseness or difficulty speaking. RESPIRATORY denies dyspnea, snoring, cough, wheezing or hemoptysis. CARDIOVASCULAR Palpitation at times, assymptomatic ABDOMINAL denies ulcer disease, hematochezia or melena. MUSCULOSKELETAL mild pain upper back NEUROLOGICAL denies any history of recurrent headaches, strokes, TIA, or seizure disorder. PSYCHIATRIC sleep disturbance, yarigiovanimarge wakes him with flushing/itching, Sleep well no problems, sometimes has flushing at night from niacin ENDOCRINE denies any history of thyroid disease or diabetes mellitus. HEMATOLOGICAL/IMMUNOLOGIC denies any food allergies, seasonal allergies, bleeding disorders. PHYSICAL EXAMINATION VITAL SIGNS: Blood Pressure: 105/67 Sitting, Right arm, regular cuff Pulse- 57.00/min. Weight- 183.40 lbs. Height- .00 Temperature- .00 CONSTITUTIONAL cooperative, alert and oriented,well [...] rubs detected. ABDOMEN abdomen soft, bowel sounds normoactive PERIPHERAL PULSES pulses full and equal in all extremities, no bruits auscultated. EXTREMITIES & BACK no clubbing, cyanosis or edema NEUROLOGICAL no gross motor deficits noted, affect appropriate, oriented to time, person and place. MEDICATIONS UPDATED/STARTED TODAY: Niacin 1000mg, 2 p.o. daily, 0 Amitriptyline Hydrochloride 10 Mg, 1 p.o. as Directed-prn, 0 Fish Oil 1000mg, 2 p.o. daily, 0 Lisinopril 5mg, 1 p.o. daily, 0 MEDICATIONS REFILLED/STOPPED TODAY: Niaspan . Take as Directed 1500mg for 3 weeks than increase to 2000mg 0 Treatment Completed, Prinivil 5 mg 1 p.o. q.d. 0 Medication Change, Fish Oil - Take as Directed 0 Refill and Amitriptyline Hydrochloride 10 mg 1 p.o. as Directed Refill IMPRESSIONS/PLAN 1. Coronary artery disease. Ryan did require stenting of a large OM in July of 2008 after acute coronary syndrome. In followup, he has been free from any anginal symptoms and has known preserved left ventricular function. I will have him undergo a surveillance nuclear stress test in 3 months, prior to his office visit with Dr. Holder. Again, he does not experience any chest discomfort today. 2. Hypertension. His blood pressure is controlled. 3. Hyperlipidemia. Ryan's LDL and triglyceride levels are at goal on niacin and simvastatin. 4. He is to remain on Plavix for 1 full year without interruption from his stenting, which is July of 2009. 5. Recent hemoglobin A1C under 6. Thank you for allowing me to participate in this patient's care. He is to notify our clinic with any chest discomfort, shortness of breath, lightheadedness, dizziness, or other concerns that he may have during the interim. TODAYS ORDERS 1. Return Visit 4 mo w/ DL 2. Treadmill Nuclear Study 4 months Nancy Ferguson N.P. documented in this encounter Plan of Treatment Not on file documented as of this encounter Visit Diagnoses Not on filedocumented in this encounter Care Teams Algebraist Relationship Specialty Start Date End Date Crump Que PCP - General 07/09/12 06/02/16 [place] [address] [place] [address] PCP - General Family Practice 06/03/16 05/26/22 [place] [address] [place] [address] PCP - Assigned PCP 04/26/16 10/06/18 [place] [address] [place] [address] PCP - General 05/27/22 [place] [address] [place] [address] Assigned PCP 04/26/16 02/15/22 Savage Estrella [facility] [address] [place] [address] Pharmacist Pharmacist 12/07/18 [place] [address] [place] [address] Assigned PCP 02/16/22 Todd Shaw MD [address] [id number] [place] [address] Assigned Surgical Provider 02/23/22 Sukhwinder Collins MD [address] [place] [address] Assigned Surgical Provider 03/30/2204/05/22 Todd Shaw MD [id number] [place] [address] Assigned Surgical Provider 04/06/22 Fritz Cantu RN Personal Advocate & Liaison (PAL) Nurse 08/16/22 12/02/23 Keiry Hernandez, PA-C [address] [place] [address] Physician Vulcanizing Machine Operator Dermatology 06/02/23 documented as of this encounter
--- OUTSIDE RECORDS SUMMARY | 2024-04-27 08:51 | XMS_ITS | Encounter Summary ---
Author Organization [facility] Address [address] [place] [address]. [place] [address] Care Team Providers Care Leaf Stamper Name Role Phone Que Crump Primary Care Provider [phone] Glenys Obrien MD Primary Care Provider [phone] Glenys Obrien MD Unavailable Glenys Obrien MD Unavailable Savage Estrella [facility] Unavailable Unavailable Coming Katharine De Oliveira MD Unavailable [phone] Todd Shaw MD Unavailable Sukhwinder Collins MD Unavailable Todd Shaw MD Unavailable Coming Katharine De Oliveira MD Primary Care Provid er Fritz Cantu RN Unavailable Unavailab Keiry Estes PA-C Unavailable [phone] Encounter Details Date Type Department Care Team (Late st Contact Info) Description 08/16/2008 Office Visit-[facility] [address] [place] [address] Unknown, Doctor, Social History Tobacco Use Types Packs/Day Years Used Date Smoking Tobacco: Never Assessed Sex and Gender Information Value Date Recorded Sex Assigned at Male 05/09/2019 9:19 AM CDT Gender Identity Male 05/09/2019 9:19 AM CDT Sexual Orientation Straight 05/09/2019 9: 19 AM CDT documented as of this encounter Progress Notes * Unknown, MD Claus - 11/29/2008 1:46 PM CDT Progress Note Created by: Shaila Vargas PA-C DATE: 08/16/2008 [id number] RASH[facility] MCCLURE DATE OF : 1940 AGE: [age] years old Referring Physician: LIAN,NOT IN GEMMS CURRENT DIAGNOSES 1. WV-S/P Non-Q wave, 412 2. - Angina Pectoris, 413.9 3. - Hypertension, 401.1 4. - CAD, 414.00 5. - Hyperlipidemia, 272.4 ALLERGIES NKA MEDICATIONS (prior to changes made today) 1. Atenolol 25 Mg, 1 p.o. b.i.d. 2. Multi Vitamin one, 1 p.o. q.d. 3. Glusosamine HCL/ Chondroilin Sulfate 1500 mg./ 1200 mg., 1 p.o. q.d. 4. Triamcinolone Acetonide Topical 0.1%, Take as Directed 5. Amitriptyline Hydrochloride 10 mg, 1 p.o. as Directed 6. Plavix 75 mg, 1 p.o. q.d. 7. Prinivil 5 mg, 1 p.o. q.d. 8. Niaspan ER 1000 mg, 1 p.o. q.d. 9. Nitroquick 0.4 mg, Take as Directed 10. Zocor 40 mg, 1 p.o. qHS 11. Aspirin 81 mg, 1 p.o. q.d. 12. Fish Oil -, Take as Directed CHIEF COMPLAINTS fu hospital discharge HISTORY OF PRESENT ILLNESS Mr. Mcclure is a delightful 68-year-old gentleman who presents to the cardiology clinic today for afollow-up visit regarding his recent hospitalization. As you recall, he presented with a non-ST segment elevation WV with a peak troponin of 0.621 for which he was taken to the candlemaking laborer and was foundto have a 95% occlusion to the obtuse marginal 1 artery for which he did undergo successful angioplasty and stenting with a CYPHER drug-eluted stent. His ejection fraction is normal. He has mild disease in the RCA and LAD as well as the ramus intermedius arteries. He was experiencing chest pressureand tightness for about three days that would come on with exertion and relieved by rest prior to his hospital admission. Since then he has not had any symptoms of chest discomfort or tightness or pressure. He has been taking his medications and seems to tolerate those without difficulty. During his hospitalization, he did have a lipid profile drawn, which revealed total cholesterol 182, triglycerides 218, LDL 111, VLDL 44, HDL 27. He was placed on simvastatin and Niaspan. He does seem to be tolerating these without too much difficulty. He did notice some flushing last evening, which was the first that he had noticed that after taking the Niaspan. I asked him to take his aspirin 30 minutes prior to taking the Niaspan. His groin has healed up nicely. He is exercising and trying to make the appropriate changes to his diet. All other review of systems, past medical history, and physical examination findings are noted below. PAST HISTORY Past Medical Illnesses: Hyperglycemia, hypertension, pneumonia, hyperlipidemia Past Cardiac Illnesses: coronary artery disease, S/P myocardial infarction-non Q wave, angina Surgeries/Procedures - General: hernia repair Cardiology Procedures-Invasive: cardiac cath (left) Jul 2008, AMEE Stent OM 04 Jul 2008 Left Ventricular Ejection Fraction: EF normal by cath -Jul 2008 PHYSICAL EXAMINATION VITAL SIGNS: Blood Pressure: 110/70 Sitting, Left arm, regular cuff Pulse- 62.00/min. Weight- 186.60 lbs. Height- 69.50 Temperature- .00 CONSTITUTIONAL cooperative, alert and oriented,well developed, well nourished, in no acute distress. SKIN warm and dry to touch, no apparent skin lesions, or masses noted. HEAD normocephalic, atraumatic EYES Pupils equal and round, conjunctivae and lids unremarkable, sclera white, no xanthalasma ENT no pallor or cyanosis, dentition good NECK carotid pulses are full and equal bilaterally, JVP normal, no carotid bruit, no thyromegaly CHEST normal symmetry, no tenderness to palpation, normal respiratory excursion, no intercostal retraction, no use of accessory muscles, clear to auscultation and percussion. CARDIAC regular rhythm, S1 normal, S2 normal, No S3 or S4, Apical impulse not displaced, no murmurs, gallops or rubs detected. ABDOMEN abdomen soft, bowel sounds normoactive, no masses, no hepatosplenomegaly, non- tender, no bruits PERIPHERAL PULSES pulses full and equal in all extremities, no bruits auscultated. EXTREMITIES & BACK no deformities, clubbing, cyanosis, erythema or edema observed. There are no spinal abnormalities noted. Normal muscle strength and tone. NEUROLOGICAL no gross motor deficits noted, affect appropriate, oriented to time, person and place. MEDICATIONS UPDATED/STARTED TODAY: Atenolol 25 Mg, 1 p.o. b.i.d., #60 Multi Vitamin one, 1 p.o. q.d. Glusosamine HCL/ Chondroilin Sulfate 1500 mg./ 1200 mg., 1 p.o. q.d. Triamcinolone Acetonide Topical 0.1%, Take as Directed Amitriptyline Hydrochloride 10 mg, 1 p.o. as Directed MEDICATIONS REFILLED/STOPPED TODAY: Elavil 10 mg 1 p.o. PRN as Directed 0 Physician Order, Tenormin 25 mg 1 p.o. b.i.d. 0 Physician Order, Atenolol 25 mg 1 t.i.d. Refill and Tenormin 25 mg 1 p.o. PRN as Directed Physician Order IMPRESSIONS/PLAN 1. Coronary artery disease, status post angioplasty and stenting with a CYPHER drug-eluted stent tothe obtuse marginal artery. He will remain on Plavix for a minimum of one year and aspirin indefinitely. He has mild disease in his other vessels. 2. Hypertension. Today his blood pressure is controlled at 110/70. He is on beta-blockers and RENEE inhibitors. 3. Dyslipidemia with HDL deficiency. He isstarted on simvastatin and Niaspan. He will be due for a fasting lipid profile and ALT in about 3-5weeks from now and he will have this done at his PMD's office. Ideally we would like to see his triglycerides less than 150, HDL greater than 40 and an LDL less than 70. I have encouraged him to continue to get regular routine aerobic exercise and to follow a heart healthy diet. He will follow-up with Dr. Holder in November. If he has any problems in the interim certainly I would be happy to see him sooner. Thank you for allowing us to be involved in his care. RADHA Noel documented in this encounter Plan of Treatment Not on file documented as of this encounter Visit Diagnoses Not on filedocumented in this encounter Care Teams Leaf Stamper Relationship Specialty Start Date End Date Que Crump PCP - General 07/09/12 06/02/16 [place] [address] [place] [address] PCP - General Family Practice 06/03/16 05/26/22 [place] [address] [place] [address] PCP - Assigned PCP 04/26/16 10/06/18 [place] [address] [place] [address] PCP - General 05/27/22 [place] [address] [place] [address] Assigned PCP 04/26/16 02/15/22 Savage Estrella [facility] [address] [place] [address] Pharmacist Pharmacist 12/07/18 [place] [address] [place] [address] Assigned PCP 02/16/22 Todd Shaw MD [id number] [place] [address] Assigned Surgical Provider 02/23/22 Sukhwinder Collins MD [address] [address] Assigned Surgical Provider 03/30/2204/05/22 Todd Shaw MD [id number] [place] [address] Assigned Surgical Provider 04/06/22 Fritz Cantu, RN Personal Advocate & Liaison (PAL) Nurse 08/16/22 12/02/23 Keiry Hernandez PA-C [address] [place] [address] Physician [employer] [facility] 06/02/23 documented as of this encounter
--- OUTSIDE RECORDS SUMMARY | 2024-04-27 08:51 | XMS_ITS | Encounter Summary ---
Author Organization [facility] [place] Address [address] [place] [address]. [place] [address] Care Team Providers Care Multiple Games Dealer Name Role Phone Que Crump Primary Care Provider Glenys Obrien MD Primary Care Provider [phone] Glenys Obrien MD Unavailable Glenys Obrien MD Unavailable Savage Estrella [facility] Unavailable Unavailable Coming Katharine De Oliveira MD Unavailable [phone] Todd Shaw MD Unavailable [phone] Sukhwinder Collins MD Unavailable Todd Shaw MD Unavailable Coming Katharine De Oliveira MD Primary Care Provid er Fritz Cantu RN Unavailable Unavailab Keiry Estes PA-C Unavailable [phone] Encounter Details Date Type Department Care Team (Late st Contact Info) Description 12/01/2008 Office Visit-[facility] [address] [place] [address] Manav Holder MD Social History Tobacco Use Types Packs/Day Years Used Date Smoking Tobacco: Never Assessed Sex and Gender Information Value Date Recorded Sex Assigned at Male 05/09/2019 9:19 AM CDT Gender Identity Male 05/09/2019 9:19 AM CDT Sexual Orientation Straight 05/09/2019 9: 19 AM CDT documented as of this encounter Progress Notes * Manav Holder MD - 12/07/2008 12:17 PM CDT Progress Note Created by: Manav Holder M.D. DATE: 12/01/2008 [facility] M[facility] DATE OF : 1940 AGE: [age] years old Referring Physician: MELI DONOHUE Referring Clinic: [facility] CURRENT DIAGNOSES 1. PTCA- OM1 AMEE 07/11, V45.82 2. - CAD, 414.00 3. - Hyperlipidemia, 272.4 4. [place]-S/P Non-Q wave, 412 5. - Hypertension, 401.1 ALLERGIES NKA MEDICATIONS (prior to changes made today) 1. Atenolol 25 Mg, 1 p.o. b.i.d. 2. Niaspan ., Take as Directed 1500mg for 3 weeks than increase to 2000mg 3. Plavix 75 mg, 1 p.o. q.d. 4. Prinivil 5 mg, 1 p.o. q.d. 5. Nitroquick 0.4 mg, Take as Directed 6. Aspirin 81 mg, 1 p.o. q.d. 7. Fish Oil -, Take as Directed 8. Simvastatin 10 mg, 1 p.o. qHS 9. Multi Vitamin one, 1 p.o. q.d. 10. Glusosamine HCL/ Chondroilin Sulfate 1500 mg./ 1200 mg., 1 p.o. q.d. 11. Triamcinolone Acetonide Topical 0.1%, Take as Directed 12. Amitriptyline Hydrochloride 10 mg, 1 p.o. as Directed CHIEF COMPLAINTS Followup of - CAD HISTORY OF PRESENT ILLNESS I had the pleasure of seeing Mr. Mcclure today. This 68-year-old gentleman is seen in follow-up of his coronary disease. He presented with an acute coronary syndrome with positive troponins in July and underwent stenting of a large obtuse marginal branch with drug-eluting stent for a rupture plaque. Since then he has returned to full activity and is feeling well. In fact, he states he has more energy than he had for the six months prior to this event. He is doing regular activities without any chest discomfort, fatigue, dyspnea, on exertion or other complaints. He denies myalgias or muscle weakness. He has tolerated the titration of his Niaspan for his mixed dyslipidemia and his only issue has been the cost, which is quite significant with his insurance plan. He is tolerating the Plavix without significant bleeding although he can tell it is having some effect. His blood pressure has been controlled and is appropriate at 124/71 today. A recent fasting lipid profile in September showed a fasting glucose of 114. He has been checking itwith his 's glucometer and 1/2 to 2/3 of his fasting glucoses have been in the 110-120 range although some have been normal. Dietary review indicates a good understanding and apparent compliance with a low carbohydrate, low fat diet. I discussed formally reviewing the Revizer and/or Mediterranean diets to see if he is as close to those as he can get and I think this will help his glucose tolerance. Lipids in September showed his triglycerides 113, down from about 240, HDL 31, up from 27, and LDL of 39, which was down from his baseline of 111 in the hospital. At that time his statin was cutback and his Niaspan increased to try to improve his HDL. That was about two months ago so I will recheck a fasting lipid profile now. His cardiopulmonary exam is normal today. PAST HISTORY Past Medical Illnesses: Hyperglycemia, hypertension, pneumonia, hyperlipidemia, diabetes mellitus-diet controlled Past Cardiac Illnesses: coronary artery disease, S/P myocardial infarction-non Q wave, angina Surgeries/Procedures - General: hernia repair Cardiology Procedures-Invasive: cardiac cath (left) Jul 2008, Cardiac Cath Results: AMEE Stent OM 04 Jul 2008 Left Ventricular Ejection Fraction: EF normal by cath -Jul 2008 SOCIAL HISTORY Alcohol Use - drinks occasionally [...] lives with female partner; Place of - [place]; REVIEW OF SYSTEMS GENERAL weight loss INTEGUMENTARY denies any change in hair or nails, rashes, or skin lesions. EYES no blurred vision, eye pain, or discharge., wears eye glasses/contact lenses EARS, NOSE, THROAT, MOUTH denies any hearing loss, epistaxis, hoarseness or difficulty speaking. RESPIRATORY denies dyspnea, snoring, cough, wheezing or hemoptysis. CARDIOVASCULAR per HPI ABDOMINAL denies ulcer disease, hematochezia or melena. MUSCULOSKELETAL mild pain upper back NEUROLOGICAL headaches PSYCHIATRIC sleep disturbance, niaspan wakes him with flushing/itching ENDOCRINE denies any history of thyroid disease or diabetes mellitus. HEMATOLOGICAL/IMMUNOLOGIC denies any food allergies, seasonal allergies, bleeding disorders. PHYSICAL EXAMINATION VITAL SIGNS: Blood Pressure: 124/71 Sitting, Left arm, regular cuff Pulse- 57.00/min. Weight- 182.80 lbs. Height- 69.50 Temperature- .00 CONSTITUTIONAL cooperative, [...] person and place. MEDICATIONS UPDATED/STARTED TODAY: Simvastatin 10 mg, 1 p.o. qHS, 0 MEDICATIONS REFILLED/STOPPED TODAY: Zocor 20 mg 1 p.o. daily #30 Dosage Decreased IMPRESSION/PLAN: 1.Coronary artery disease. Stable post drug-eluting stent from acute coronary syndrome. He will continue on his Plavix for at least a year and we will then consider discontinuing it. 2.Mixed dyslipidemia. As above, we will check a lipid profile now and if there has been no significant further improvement in the HDL we may be able to cutback on Niaspan and then try switching to Niacin SR for a trial because of an issue of cost. 3.Hypertension history, controlled on current regimen. 4.Glucose intolerance/type 2 diabetes mellitus. Along with his fasting lipid profile I will check ahemoglobin A1C and fasting blood glucose. If his hemoglobin A1C is under 6.5-7 we will continue working with his diet. If he is over 7 I will ask him to follow-up with Dr. Donohue to consider other m anagement strategies. It was a pleasure seeing this nice gentleman looking and feeling well. Thank you for having me involved in his care and please let me know if you have any questions. TODAYS ORDERS 1. F/U with Shaila Vargas PA-C 4 months 2. F/U with Manav Holder MD 9 months 3. Lipid profile/ALT 3 days 4. Hbg A1C 3 days 5. Fasting Glucose 3 days Manav Holder M.D. documented in this encounter Plan of Treatment Not on file documented as of this encounter Visit Diagnoses Not on filedocumented in this encounter Care Teams Multiple Games Dealer Relationship Specialty Start Date End Date Que Crump PCP - General 07/09/12 06/02/16 [place] [address] [place] [address] PCP - General Family Practice 06/03/16 05/26/22 [place] [address] [place] [address] PCP - Assigned PCP 04/26/16 10/06/18 [place] [address] [place] [address] PCP - General 05/27/22 [place] [address] [place] [address] Assigned PCP 04/26/16 02/15/22 Savage Estrella [facility] [address] [place] [address] Pharmacist Pharmacist 12/07/18 [place] [address] [place] [address] Assigned PCP 02/16/22 Todd Shaw MD [address] [id number] [place] [address] Assigned Surgical Provider 02/23/22 Sukhwinder Collins MD [address] [address] Assigned Surgical Provider 03/30/2204/05/22 Todd Shaw MD [id number] [place] [address] Assigned Surgical Provider 04/06/22 Fritz Cantu, ZIA Personal Advocate & Liaison (PAL) Nurse 08/16/22 12/02/23 Keiry Hernandez, PA-C [address] [place] [address] Physician [employer] Dermatology 06/02/23 documented as of this encounter
--- OUTSIDE RECORDS SUMMARY | 2024-04-27 08:51 | XMS_ITS | Clinical Summary ---
Author Organization [facility] [place], [place] [address] Care Team Providers Care Sinker Puller Name Role Phone Pcp, No Primary Care Provider Unavailabl e Allergies No known active allergies Medications Medication Sig Dispensed Refills Start Date End Date Status ASPIRIN 81 MG CHEWABLE TABIndications:Unspeci fied essential hypertension one qd 0 0 03/04/2008 Active glucosamine-chondroit- vit c-mn (GLUCOSAMINE 1500 COMPLEX) 500-400 mg Cap Take 2 Caps by mouth. 0 01/01/2011 Active Fish Oil-DHA-EPA (FISH OIL) 1,200-144-216 mg Cap Take by mouth. 2 capsules daily 0 07/02/2011 Active nitroglycerin (NITROSTAT) 0.4 mg sublingual tabletIndications:Sube ndocardial myocardial infarction (HC) PLACE 1 TABLET UNDER THE TONGUE EVERY 5 MINUTES IF NEEDED FOR CHEST PAIN. 25 tablet 5 06/17/2014 Active simvastatin (ZOCOR) 40 mg tabletIndications:Mixe d hyperlipidemia Take 1 tablet by mouth once daily with evening meal. 90 tablet 3 04/27/2015 Active lisinopril (PRINIVIL; ZESTRIL) 5 mg tabletIndications:Unsp ecified essential hypertension Take 1 tablet by mouth once daily. 90 tablet 3 04/27/2015 Active metoprolol tartrate (LOPRESSOR) 25 mg tablet Take 1 tablet by mouth once daily in the evening. 0 12/02/2017 Active cholecalciferol (VITAMIN D-3) 2,000 unit capsule Take 1 capsule by mouth once daily. 0 12/02/2017 Active Active Problems Problem Noted Date Diagnosed Date Adenomatous colon polyp 05/28/2013 Overview (06/09/2023): Colonoscopy 05/2013 polyps repeat in 5 years Colonoscopy 12/2017 polyps, repeat in 5 years Colonoscopy 06/2023 diverticulosis, repeat in 7 years Vitamin D deficiency 07/02/2011 Screening PSA (prostate specific antigen) 2010 ACP (advance care planning) 07/02/2011 Overview (11/26/2011): Patient has identified Health Care Agent(s): Yes Add Health Care Agents: Yes Health Care Agent(s): Primary Health Care Agent: Saloin Armijo Relationship: life partner cell [phone], [phone] Secondary Health Care Agent: Aster Mahin Relationship: daughter cell [phone] work Saloni and Aster are requested by patient to include Marian Mcclure in decision making. Relationship: son Patient has Advance Care Plan Documents (Health Care Directive, POLST): Yes Advance Care Plan Documents: Health Care Directive Patient has identified Specific Treatment Preferences: Yes Specific Treatment Preferences: a.) Code Status: CPR/Attempt Resuscitation b.) Goals of Treatment: Limited Interventions and treat reversible conditions. Provide interventions aimed at treatment of new or reversible illness/injury or non-life threatening chronic conditions. Duration of invasive or uncomfortable interventions should generally be limited. Subendocardial myocardial infarction 08/01/2008 Overview (06/23/2014): 07/2008 Non-ST segment elevation; peak troponin 0.621 Angioplasty showed: 95% occlusion of proximal ostial obtuse marginal treated with angioplasty and a Cypher drug eluting stent with 0% residual. 20-30% RCA 15-20% left anterior descending 20% ramus intermedius stenosis, vessels appear to have aneurysmal appearance EF was 55% after [place] [facility] - Dr Manav Holder Mixed hyperlipidemia 11/19/2006 Unspecified essential hypertension 11/19/2006 Overview (11/19/2006): borderline 11/2006 Nodular prostate with urinary obstruction 2006 Resolved Problems Problem Noted Date Diagnosed Date Resolved Date Benign neoplasm of colon 11/19/2006 Overview (04/06/2010): Colonoscopy 03/2010 polyps repeat in 3 years Cervicalgia 02/11/2001 03/06/2010 Immunizations Name Administration Dates Next Due Influenza A (H1N1), Inactiva iris (Age >=3 Years) 08/14/2009 Influenza, High-dose Inactivated 04/18/2015,05/05 Influenza, IIV3 (Age >=3 years) 05/18/20 13,04/22/2012,07/02/2011,2008 Pneumococcal Poly,23-Valent (Pneumovax) 03/04/2008 Td (Age >=7 Years) 11/03/2003 Tdap 07/02/2011 Zoster (Zostavax-ZVL, live) 08/12/2011 Family History Medical History Relation Name Comments Cancer Father stomach/bone ca ncer at 65 Heart Disease Father [place] 51 AND 57 Cancer-colon Maternal Uncle Other Mother dementia age 70 at 85 Relation Name Status Comments Father Maternal Uncle Mother Social History Tobacco Use Types Packs/Day Years Used Date Smoking Tobacco: Former Cigarettes 1 14 0 [birth year]04/1952 - 08/04/1968 Smokeless Tobacco: Never Tobacco Cessation:Counseling Given: Yes Alcohol Use Standard Drinks/Week Comments Yes 8.3 (1 standard drink = 0.6 oz p ure alcohol) occ Sex and Gender Information Value Date Recorded Sex Assigned at Not on file Gender Identity Not on file Sexual Orientation Not on file Obstetrics History Last Filed Vital Signs Vital Sign Reading Time Taken Comments Blood Pressure 159/88 12/02/2017 10:37 AM CDT Pulse 60 12/02/2017 10:37 AM CDT Temperature 36.5 ??C (97.7 ??F) 11/30/2014 2:31 PM CD T Respiratory Rate 12 04/27/2015 2:15 PM CDT Oxygen Saturation 97% 12/02/2017 10:37 AM CDT Inhaled Oxygen Concentration - - Weight 89.4 kg (197 lb) 04/27/2015 2:15 PM CDT Height 174 cm (5' 8.5) 04/27/2015 2:15 PM CDT Body Mass Index 29.52 04/27/2015 2:15 PM CDT Plan of Treatment Health Maintenance Due Date Last Done Comments Depression screening for age 12+ 1954 BMI (ht and wt on same day) for age 18+ 1960 Pneumococcal series for age 65+ (2 of 2 - PCV) 03/04/2009 03/04/2008 Zoster (shingles) series for age 50+ (2 of 3) 10/07/2011 08/12/2011 RSV vaccine for adults or (1 - 1-dose 75+ series) 2017 Tetanus booster 07/02/2021 07/02/2011, 11/03/2003 COVID-19 vaccine series ( season) 2024 10/17/2020, 09/26/2020 Influenza for age 65+ 04/04/2024 04/18/2015 , 05/24/2014, 05/18/2013, Additional history exists Tdap Completed 07/02/2011 Advance Directives Documents on File Type Date Recorded 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 PCP - General 03/28/16
== END 2024-04-27 08:47 | disposition home or self-care (01) ==
PROVIDERS: PCP Internal Medicine; Visit Provider Internal Medicine
DX: E78.5 Hyperlipidemia, unspecified (principal); I10 Essential (primary) hypertension; Z12.5 Encounter for screening for malignant neoplasm of prostate
CPT/HCPCS: 80053; 80061; G0103